=== PATIENT | male | born 1940 | race Caucasian/White ===

== ENCOUNTER 2023-07-09 06:06 | Day surgery (SDC) | payer OTHER, SELFPAY ==
[2023-07-09] VITALS (21 sets, daily range): BP systolic 143–275; BP diastolic 104–215; PULSE 61–83; RESP 16–18; TEMP 35.9–36.9; O2SAT 95–100; BMI 27.1
[2023-07-09] MEDS: LACTATED RINGERS 1000 ML 1,000 ML 100 ML IV ×3 (06:05→11:34)
--- OUTSIDE RECORDS SUMMARY | 2023-07-09 06:08 | XMS_ITS | Clinical Summary ---
Author Name Unknown Organization [facility] Address [place], [place] [address] Care Team Providers Care Terminal Press Operator Name Role Phone Marya Trejo MD Primary Care Prov ider Allergies Active Allergy Reactions Criticality Noted Date Comments Nifedipine 04/19/2009 Itching, dreams Medications Medication Sig Dispensed Refills Start Date End Date Status FLAXSEED OIL 0 01/02/2007 Active ASPIRIN 81 MG TAB, DELAYED RELEASE take 1 tablet (81 mg) by oral route once daily 0 01/02/2007 Active coenzyme q10 100 mg Cap Take 1 capsule by mouth once daily. 0 04/25/2010 Active medication order composer Beta prostate supplement 1 unit 0 07/01/2012 Active b complex vitamins (VITAMIN B COMPLEX) capsule Take 1 capsule by mouth once daily. 0 08/06/2013 Active magnesium oxide (MAG-OX 400) 400 mg tablet Take 1 tablet by mouth once daily. 0 11/26/2019 Active cholecalciferol (VITAMIN D-3) 2,000 unit capsule Take 1 capsule by mouth once daily. 0 11/26/2019 Active carvediloL (COREG) 6.25 mg tabletIndications: HTN (hypertension) Take 2 Tablets (12.5 mg) by mouth two times daily with meals. 120 Tablet 2 04/23/2023 4 Active Sennosides (Senna) 8.6 mg capIndications:Chr onic idiopathic constipation Take 1 Capsule (8.6 mg) by mouth once daily. 90 Capsule 5 05/01/2023 Active CPAPIndications:OS A (obstructive sleep apnea) CPAP machine for home use at pressure 10cmw, CPAP mask- mask of choice, fit to comfort one per 3 months 1 Each 11 07/04/2023 Active doxazosin (CARDURA) 1 mg tabletIndications: Essential hypertension Take 2 tablets by mouth at bedtime. Dose increase as of 02/22/2020 60 tablet 02/22/2020 4 Discontinue d(*Med complete/Re gimen complete/Le venancio of care change) cloNIDine HCL (CATAPRES) 0.2 mg tabletIndications: Hypertension, unspecified type TAKE 1 TABLET BY MOUTH TWICE DAILY AND 0.5 TABLETS IN THE EVENING. 270 Tablet 11/07/2020 4 Discontinue d(*Med complete/Re gimen complete/Le venancio of care change) Active Problems Problem Noted Date Diagnosed Date Stage 3a chronic kidney disease 06/28/2023 Resistant hypertension 06/28/2023 Non-recurrent bilateral ingu inal hernia without obstruction or gangrene 06/28/2023 Diverticula of colon 06/14/2016 Overview: Per colonoscopy 05/2016 Glucose intolerance (pre-diabetes) 07/01/2012 Family history of malignant neoplasm of prostate 07/05/2011 Melanosis coli 05/17/2010 Colon polyp 05/17/2010 Overview: Colonoscopy 04/2010 polyps repeat in 3 years Colonoscopy 05/2016 polyps repeat in 5 years Anxiety 09/02/2009 Glucose intolerance 01/21/2008 Unspecified Essential Hypertension 01/21/2008 Overview: Patient stopped hydrochlorothiazide because of joint pain Hytrin stopped because of irritability moodiness depression Nifedipine was okay at 5 mg but increase dose to 10 caused red rash blister hive-like Atenolol increased doses caused bradycardia Screening cholesterol level 01/21/2008 Encounters Date Type Department Care Team Description 07/08/2023 Telephone [facility] [address] [place], [place] [id number] Kelly Paniagua MD 07/08/2023 Telephone [facility] [address] [place], [place] [phone] Jorge Alberto Arreola MD 07/05/2023 Telephone [facility] [address] [place] [place], [place] [phone] Jorge Alberto Arreola MD Questions (CPAP MACHINE ) 07/04/2023 7:30 AM CDT Nurse/Clinic Staff Only [facility] [address] [facility] [place] [id number] Testing (HST Return/Download) 07/03/2023 1:45 PM CDT Nurse/Clinic Staff Only [facility] [address] [facility] [place] [address] Testing (HST Set-up) 07/03/2023 Procedure Only [facility] [address] [place] [address] Jorge Alberto Arreola MD Results (HST) 07/03/2023 Travel 06/28/2023 8:10 AM CDT Preop Visit [facility] [address] [place] [address] Genet Thakkar MD Pre-Op Exam (07/09/23 Bilateral hernia, at [facility] Dr. Paniagua) 06/28/2023 Travel 06/26/2023 1:00 PM CDT Office Visit [facility] [address] [place] [address] Kelly Paniagua MD Follow Up (Bilateral inguinal hernia surgery) 06/26/2023 Travel 06/21/2023 Orders Only [facility] [address] [facility] [place] [address] Nicole Campoverde MD 1 scan: (1-Ord) [facility]-EKG-06/18/23 06/20/2023 10:30 AM CDT Orders Only [facility] [address] [facility] [place] [facility] [place] [address] Lab, [facility] Lab 06/20/2023 Travel 06/19/2023 4:00 PM CDT Office Visit [facility] [address] [facility] [place] [address] Jorge Alberto Arreola MD Sleep Consult 06/19/2023 Telephone [facility] [address] [place] [address] Marya Trejo MD Lab 06/18/2023 9:00 AM CDT Office Visit [facility] [address] [facility] [place] [address] Nicole Campoverde MD Consult (Clearance for surgery on bilateral Inguinal hernia ) 06/18/2023 Telephone [facility] [address] [place] [address] Nicole aCmpoverde MD Results (EKG 06/24/2023) 06/18/2023 Telephone [facility] [address] [place] [address] Nicole Campoverde MD Cardiovascular Diagnostic Testing 06/18/2023 Travel 05/01/2023 3:00 PM MANAGING MEMBER Office Visit [facility] [address] [place] [address] Kelly Paniagua MD Consult (Bilateral inguinal hernia.//Referred by Dr. Trejo) 05/01/2023 Travel 04/25/2023 Telephone [facility] [address] [facility] [place] [address] Marya Trejo MD Follow Up 04/24/2023 9:10 AM MANAGING MEMBER Nurse/Clinic Staff Only [facility] [address] [place] [address] Blood Pressure 04/23/2023 2:05 PM MANAGING MEMBER Office Visit [facility] [address] [place] [address] Marya Trejo MD Lump (Lumps in the lower abdominal area. Has had them approximately 6 week. Some discomfort which showed up prior to the lumps ) 04/23/2023 Telephone [facility] [address] [facility] [place] [address] Marya Trejo MD Appointment 04/23/2023 Travel 04/15/2023 Telephone [facility] [address] [place] [address] Marya Trejo MD Appointment Request (POSSIBLE HERNIA) from Last 3 Months Immunizations Name Administration Dates Next Due Pneumococcal Poly,23-Valent (Pneumovax) 04/19/19 10 Pneumococcal conj 13-Valent (Prevnar 13) 018 Td (Age >=7 Years) 10/07/2002 Tdap 07/05/2011 Family History Medical History Relation Name Comments Cancer-prostate Father age 100 Other Mother of heart f ailure/motherside of family glaucoma-macular degeneration Genetic Other HTN-brother, mo ther, and sisters Relation Name Status Comments Father Mother Other Social History Tobacco Use Types Packs/Day Years Used Date Smoking Tobacco: Never Smokeless Tobacco: Never Tobacco Cessation:Counseling Given: Not Answered Comments:never Alcohol Use Standard Drinks/Week Comments Not Currently 0.8 (1 standard drink = 0.6 oz p ure alcohol) PHQ-2 Answer Date Recorded PHQ-2 TOTAL SCORE 0 02/22/2020 Social Connections Answer Date Recorded Frequency of Communication with Friends and Fami ly 0 06/28/2023 Financial Resource Strain Answer Date R ecorded Difficulty of Paying Living Expenses 3 06/28/2023 Difficulty of Paying Living Expenses Not on file 06/28/2023 Food Insecurity Answer Date Recorded Worried About Running Out of Food in the Last Ye ar 1 06/28/2023 Transportation Needs Answer Date Record ed Lack of Transportation (Medical) 1 06/28/2023 Housing Stability Answer Date Recorded Unable to Pay for Housing in the Last Year 1 06/28/2023 Sex and Gender Information Value Date Recorded Sex Assigned at Not on file Gender Identity Not on file Sexual Orientation Not on file Obstetrics History Last Filed Vital Signs Vital Sign Reading Time Taken Comments Blood Pressure 204/114 06/28/2023 9:03 AM CDT Pulse 63 06/28/2023 8:09 AM CDT Temperature 36.6 ??C (97.8 ??F) 06/03/2018 10:35 AM C DT Respiratory Rate 16 02/06/2019 2:50 PM MANAGING MEMBER Oxygen Saturation 100% 06/28/2023 8:09 AM CDT Inhaled Oxygen Concentration - - Weight 83.5 kg (184 lb 2 oz) 06/28/2023 8:09 AM CDT Height 174 cm (5' 8.5) 06/19/2023 4:03 PM CDT Body Mass Index 27.59 06/19/2023 4:03 PM CDT Plan of Treatment Upcoming Encounters Date Type Department Care Team (Late st Contact Info) Description 07/09/2023 8:00 AM CDT Office Visit [facility] [address] [place] [address] Kelly Paniagua MD [address] [place] [address] 10/10/2023 10:00 AM CDT Office Visit [facility] [address] [place] [address] Jorge Alberto Arreola MD [address] [place] [address] Health Maintenance Due Date Last Done Comments Zoster (shingles) series for age 50+ (1 of 2) 1992 Medicare Wellness for age 65+ 11/26/2019, 07/16/2017, 01/27/2016, Additional history exists Depression screening for age 12+ 02/22/2021 02/23/2020, 02/22/2020, 11/25/2018, Additional history exists Tetanus booster 07/04/2021 07/05/2011, 10/07/2002 COVID-19 vaccine series ( season) 2022 Influenza for age 65+ 10/27/2023 BMI (ht and wt on same day) for age 18+ 06/18/2024 06/19/2023, 05/01/2023, 04/23/2023, Additional history exists Tdap Completed 07/05/2011 Pneumococcal series for age 65+ Completed 8, 04/19/2009 Procedures Procedure Name Priority Date/Time Associated Diagnosis Comments HOME SLEEP TEST TYPE 3 PORTABLE Routine 07/03/2023 11:59 PM CDT CANDELARIO (obstructive sleep apnea) EKG 12 LEAD Routine 06/21/2023 3:23 PM CDT Unspecified Essential Hypertension BASIC METABOLIC PANEL Routine 06/20/2023 10:23 AM CDT Renal insufficiency BASIC METABOLIC PANEL Routine 04/23/2023 3:59 PM MANAGING MEMBER HTN (hypertension) from Last 3 Months Results * HOME SLEEP TEST TYPE 3 PORTABLE (07/03/2023 11:59 PM CDT) Narrative Jorge Alberto Arreola MD - 07/03/2023 11:59 PM CDT Jorge Alberto Arreola MD ? 07/04/2023 ??5:26 PM Home Sleep Test Name: ??Koffi Winters Location: ??[facility] Study notes: This is a single night home sleep apnea test. The study is performed in the context of a clinical suspicion for sleep apnea. Koffi Winters ( 1940) is studied using a T3 Device using nasal pressure transducer, thoracoabdominal respiratory impedance plethysmography belts, pulse oximetry, snore microphone and actigraphy for body position. ??The study is scored by a RPSGT and interpreted by a Diplomate of the [place] [employer]. ??An [id number] review of the data has been performed by the interpreting physician. Scored following the most current version of the AASM Manual for the Scoring of Sleep and Associated Events. ?? Respiratory Event Index (DOREEN) ??Oxygen Desaturation Index (CANDIDA) REI4% ??28.3 ??ODI4%: ??26.9 Supine DOREEN: 39.1 ??ODI3%: ??26.9 Lateral DOREEN: 12.7 ??Kishan Saturation 68 % ?? Time Below 88% 66.3 ??minutes ?? Weight: Wt Readings from Last 1 Encounters: 06/28/23 83.5 kg (184 lb 2 oz) Other data: Recording Duration: 359.9 minutes Time in Bed: ??346.1 minutes Estimated sleep efficiency [%]: 96 % Oximeter Quality: 100.0 % Flow Quality: 91.1 % RIP Quality: 100.0 % Supine time: 201.2 minutes Average SpO2: 91.7 % Pulse Average: 55.5 bpm Additional Comments: None IMPRESSION: Obstructive Sleep Apnea (327.23, G47.33) Central Sleep Apnea - Lopez Yuan Respirations (786.04, R06.3) Nocturnal Hypoxia (327.26, G47.34) RECOMMENDATIONS: - This is severe sleep apnea with marked hypoxemia. ??This patient was found to have central apneas, severe events in a supine position. ??This can play a role in his blood pressure. - Hypoxia is noted. ??While this can be probe error, it may suggest underlying cardiopulmonary disease and clinical correlation is recommended. - Follow-up with a provider to discuss results is recommended. - Patients should be advised to avoid critical tasks, such as driving, whenever drowsy. - Patients should try to achieve at least 7-8 hours of sleep on a consistent basis. - The DOREEN is a surrogate for AHI. ??For reimbursement and/or prior authorization purposes, it would be appropriate to list the DOREEN as an AHI when the latter is accepted, but not the former. Jorge Alberto Arreola M.D. Diplomate, Board of Sleep Medicine Recording Information Recording Date: 07/03/2023 ??Analysis Start Time: 10:13 PM Recording Tags: ?? Analysis Stop Time: 4:00 AM Device Type: T3S ??Analysis Duration (TRT): 5h 46m ?? Est. Total Sleep Time: 5h 38m Position and Analysis Time Duration Percentage Supine (in TST): 201.2 m 59.4 % Non-Supine (in TST): 137.5 m 40.6 % Upright (in TRT): 7.3 m 2.1 % Movement (in TST): 13.2 m 3.9 % Invalid Data (Excluded): 0 m 0 % Respiratory Indices Index ?? Total ??Supine ??Non-supine Count Apneas + Hypopneas (AH): 28.3 /h 39.1 /h 12.7 /h 160 Apneas: 17.2 /h 23 /h 8.7 /h 97 Obstructive (OA): 6.6 /h 11 /h 0 /h 37 Mixed (MA): 2.3 /h 3.6 /h 0.4 /h 13 Central (CA): 8.3 /h 8.3 /h 8.3 /h 47 Hypopneas: ??11.2 /h 16.1 /h 3.9 /h 63 Respiration Rate (per m): 12.7 /m 12.6 /m 12.9 /m ?? Percentage of Sleep Duration Snore: 2.2 % 3.6 % 0.3 % 7.6 m Flow Limitation: 0 % 0 % 0 % 0 m Average Snore Volume 67 dB Percent of time greater than 80dB: Percent of 8.3 % Oxygen Saturation (SpO2) Total Supine ?Non-supine Oxygen Desaturation Index (CANDIDA): 26.9 /h ??37 /h 12.2 /h Average SpO2: 91.7 % ??91.2 % 92.5 % Minimum SpO2: 68 % ??68 % 79 % SpO2 Duration < 90% 23.8 % (80.6m) 35.4 % 6.8 % SpO2 Duration ? 88% 19.6 % (66.3m) 29.4 % 5.3 % Pulse in TST ?? Quality ?? Average: 55.5 bpm Oximeter: 100 % Maximum: 73 bpm Nasal Cannula: 91.1 % Minimum: 46 bpm Abdomen RIP: 100 % Duration < 40 bpm: 0 m Thorax RIP: 100 % Duration > 100 bpm: 0 m ? Jorge Alberto Arreola MD SLEEP CENTER * EKG 12 LEAD (06/21/2023 3:23 PM CDT) Nicole Campoverde MD EKG ORD * (ABNORMAL) BASIC METABOLIC PANEL (06/20/2023 10:23 AM CDT) Only the most recent of2 resultswithin the time period is included. SODIUM 141 136 - 145 mmol/L 06/20/2023 11:58 AM [facility] POTASSIUM 4.0 3.5 - 5.1 mmol/L 06/20/2023 11:58 AM [facility] CHLORIDE 106 98 - 107 mmol/L 06/20/2023 11:58 AM [facility] CO2,TOTAL 23 22 - 29 mmol/L 06/20/2023 11:58 AM [facility] ANION GAP 12 5 - 18 06/20/2023 11:58 AM [facility] GLUCOSE 103(H) 70 - 99 mg/dL 06/20/2023 11:58 AM [facility] CALCIUM 9.2 8.8 - 10.2 mg/dL 06/20/2023 11:58 AM [facility] BUN 24(H) 8 - 23 mg/dL 06/20/2023 11:58 AM [facility] CREATININE 1.41(H) 0.70 - 1.20 mg/dL 06/20/2023 11:58 AM [facility] BUN/CREAT RATIO 17 10 - 20 4 11:58 AM [facility] eGFR 50(L) >90 mL/min/1.7 3m2 06/20/2023 11:58 AM [facility] Comment:As of 2021, eG FR is calculated by the CKD-EPI creatinine equation without race adjustment. ??eGFR can be influenced by muscle mass, exercise, and diet. ??The reported eGFR is an estimation only and is only applicable if the renal function is stable. Blood BLOOD SPECIMEN / Unknown Venipuncture / Unknown 06/20/2023 10:23 AM CDT 06/20/2023 10:23 AM T Marya Trejo MD CHEMISTRY [facility] [address] [place] [address] from Last 3 Months Care Teams Terminal Press Operator Relationship Specialty Start Date End Date Marya Trejo MD [address] [place] [address] PCP - General Family Practice 05/19/12
--- NOTE | 2023-07-09 06:44 | SUR.PREOP ---
Pt has had a hard time with his new sleep apnea machine has tried to use it but may not fit well complains of nose stuffyness May need resp consult
[2023-07-09] MEDS: HYDRALAZINE HCL 20 MG/ML inj 10 MG IVP (06:57)
[2023-07-09] MEDS: SODIUM CHLORIDE 0.9 % (FLUSH) 10 ML SYRINGE IVF (07:10)
--- NOTE | 2023-07-09 07:12 | SUR.PREOP ---
Dr. Rodger elena to see pt noting elevated bp's will give some hydralazine pre-op
--- NOTE | 2023-07-09 07:38 | W.PM.H&PU ---
History & Physical Update History & Physical Update H&P Reviewed and patient assessed: The following changes are noted below H&P Updates: Patient recently diagnosed with sleep apnea. Has a CPAP machine, which he trialed last night. He did bring his CPAP machine with him today.
[2023-07-09] MEDS: CEFAZOLIN 2 GM INJ IVP (08:00)
[2023-07-09] MEDS: BUPIVACAINE 0.25% 30 ML INJECTION (08:10)
--- NOTE | 2023-07-09 08:18 | SUR.OPER ---
PATIENT QUESTIONS ANSWERED SATISFACTORILY PREOPERATIVELY. PATIENT BROUGHT TO OR #1 PER CART. Patient positioned supine on OR #1 bed. The perioperative team supported arms bilaterally on arm boards. Bilateral arms tucked in a neutral position for the procedure. Final approval of positioning by surgeon.
--- NOTE | 2023-07-09 09:06 | W.ANESCHARGE ---
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
--- NOTE | 2023-07-09 10:12 | SUR.OPER ---
PT. UPDATED BY PHONE CALL AT 10:01.
[2023-07-09] MEDS: LACTATED RINGERS 1000 ML 1,000 ML 75 ML IV ×2 (11:45→23:32)
--- NOTE | 2023-07-09 12:49 | W.ANESCHARGE ---
Anesthesia Charges Start Date/Time Anesthesia Start Date: 07/09/23 Anesthesia Start Time: 07:41 Stop Date/Time Anesthesia Stop Date: 07/09/23 Anesthesia Stop Time: 11:52 Summary Extremes of Age - Over 70 or under 1: MDA
--- NOTE | 2023-07-09 14:22 | P.GSOP_ITS ---
Operative Note Date of procedure: 07/09/23 Pre-op diagnosis: Bilateral inguinal hernias Post-op diagnosis: Same Type of Procedure: Laparoscopic bilateral inguinal hernia repair Indications: Patient is an 82-year-old male who presented to clinic with symptomatic bilateral hernias. Different treatment options were reviewed, please see consu ltation note for full discussion. Risks and benefits of operative intervention were discussed at length with the patient. Risks included but was not limited to: Bleeding, infection, risk of damage to surrounding structures, possible need for additional procedures, possible need to convert to an open operation and postoperative complications such as pneumonia, pulmonary emboli or IN. All questions and concerns were addressed with the patient agreeing to proceed. Procedure Description: After discussing the risks and benefits of the procedure, the patient signed informed consent.? The operative site was marked and the patient was brought to the operating room and placed on the operating table in supine position.? Care was taken to pad the patient's pressure points.?? The patient was then intubated by anesthesia.?? The operative site was then prepped and draped in the usual sterile fashion.? A time-out was then performed. A curvilinear incision was made below the umbilicus. Dissection was carried down to subcutaneous tissue until the anterior rectus fascia was encountered. This was incised off the midline. The rectus muscles were then retracted exposing the posterior fascia. A space maker port with a dissecting balloon was then introduced. The preperitoneal space was inflated under direct vision. The balloon was then removed and the preperitoneal space insufflated. A 10 mm 30 degree scope was then advanced and the area was surveyed for bleeding. No evidence of bleeding, however the epigastric vessels were dissected down away from the anterior abdominal wall on the left side. Dissection began on the left side. Brandon's ligament and the pubic bone was exposed medially. Following this dissection was carried out laterally. A small tear in the peritoneum was created. This did make dissection difficult as it decreased the operative field. The epigastric vessels were dissected towards the anterior abdominal wall. A small branch of venous bleeding was identified and a 5 mm clip applied A large indirect defect was noted. The sac was dissected free from the cord structures using a combination of sharp and blunt dissection. This was difficult secondary to adhesions from the sac to the inguinal canal. Once the sac was completely reduced, the cord structures were dissected circumfrentially and a piece of Parietex mesh for the appropriate side was placed into the abdomen. This was positioned around the cord structures. A Tacker was used to attach the mesh medially at Brandon's ligament. A single lateral tack was placed. Attention was turned to the opposite side where a large indirect defect was noted and repair was completed in the same fashion. Again, an area of bleeding was identified and 2 5 mm clips applied. Suction irrigation was used to gently irrigate the preperitoneal space. Hemostasis was excellent at the completion of the procedure. Once this was completed the sac was placed on top of the mesh and the preperitoneal space desufflated under direct vision. The ports were removed. The fascia from the infraumbilical port was closed with 0 Vicryl. The skin incisions were closed with absorbable subcuticular suture. Sterile dressings were then applied. The scrotum was examined to ensure that both testicles were down. Instrument sponge and needle counts were correct at the end of the case. Findings: Bilateral large indirect inguinal hernias. Anesthesia: GETA Surgeon: Kelly Paniagua MD Estimated blood loss (mL): 15 Condition: stable Disposition: PACU
--- NOTE | 2023-07-09 14:49 | PC.NURSE ---
End of Shift Note: Patient arrived from PACU around 12:30. Upon arrival he was complaining he felt like he needed to void but couldn't. He was assisted by 2 people ambulated to the bathroom and voided 150cc. He was unsteady with ambulating to the bathroom and appears to be drowsy from anesthesia. Complains of having a lot of pressure in his abdomen. Explained to him that they inflate his abdomen with gas during the procedure and that is what he maybe feeling. See intake and output and he has voided since he arrived. No complaints of nausea or pain. Have noted his blood pressure to be very high and it was pre-op. Have update Dr. Silverio regading his blood pressure and he will be seen by Dr. Beth. Will continue to monitor and await for orders. Offer to order him some clear liquids but he has declined this. His and daughter are at bedside. Will continue to monitor until next shift arrives.
--- NOTE | 2023-07-09 15:48 | RESP.RT ---
Pt's CPAP set up. Per it is a new thing. They are very frustrated with it, have talked to Dr. Arreola, who told them (per ) that the pressure cannot be lowered. He has a new mask he just recieved to try it. Note that he has a significant mustache which may cause a problem with mask seal. [facility] to work with pt on using unit, and mask fit.
[2023-07-09] MEDS: CHLORTHALIDONE 25 MG TABLET PO (16:41)
--- NOTE | 2023-07-09 19:26 | PM.IMCN1 ---
Date of Consult Patient: Yanna Patient Consult date: 07/09/23 Requesting Physician: General Surgery Primary Care Provider: Marya Trejo MD Consult Narrative Narrative: Koffi Winters is a 82 year old male admitted to the hospital for laparoscopic bilateral inguinal hernia repair is seen in consultation for management of severe hypertension. Patient has had lifelong severe uncontrolled hypertension. He was refused admission to the [employer] as a young man because of hypertension. He monitors his blood pressure at home and finds better blood pressures at home than are noted in the doctor's office. Typically he reports his systolic brought pressures are between 160 and 200 at home. He has had reports of intolerance to virtually all antihypertensives. Patient reports that he has been feeling fine recently he has not had any chest pain or dyspnea. He felt fine when he came to the hospital today for his operation. The surgery was uncomplicated. During the operation he had marked elevation of blood pressures with systolic blood pressures consistently between 200 and 260 and diastolic blood pressures consistently between 110 and 135. He received intravenous hydralazine before the operation. He takes carvedilol 6.25 mg b.i.d. chronically. Not on any other blood pressure medicines at this time. Previous evaluation has shown no obvious end-organ damage from his hypertension. There is no known history of stroke, advance kidney disease, hypertensive cardiomyopathy or myocardial infarction. 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 ICM postoperatively when he reports feeling fine except for some mild abdominal discomfort from his surgery. No nausea or chills or dyspnea or chest pain [facility] Medical History (Updated 07/09/23 @ 19:41 by Amilcar Beth MD) Severe uncontrolled hypertension ?I10 - Essential (primary) hypertension (ICD-10) Non-recurrent bilateral inguinal hernia without obstruction or gangrene ?K40.20 - Bilateral inguinal hernia, without obstruction or gangrene, not specified as recurrent (ICD-10) Diverticula of colon ?K57.30 - Diverticulosis of large intestine without perforation or abscess without bleeding (ICD-10) Colon polyp ?K63.5 - Polyp of colon (ICD-10) Melanosis coli ?K63.89 - Other specified diseases of intestine (ICD-10) Stage 3a chronic kidney disease (CKD) ?N18.31 - Chronic kidney disease, stage 3a (ICD-10) Anxiety ?F41.9 - Anxiety disorder, unspecified (ICD-10) HTN (hypertension) ?I10 - Essential (primary) hypertension (ICD-10) Glucose intolerance ?E74.39 - Other disorders of intestinal carbohydrate absorption (ICD-10) Surgical History (Updated 07/09/23 @ 19:42 by Amilcar Beth MD) Status post bilateral inguinal hernia repair ?Z98.890 - Other specified postprocedural states (ICD-10) ?Z87.19 - Personal history of other diseases of the digestive system (ICD-10) Family History (Updated 07/09/23 @ 19:37 by Amilcar Beth MD) Father Prostate cancer Other High blood pressure Social History (Updated 07/09/23 @ 19:38 by Amilcar Beth MD) Narrative: He is a retired [employer] and lives with his . He rarely drinks alcohol. He does not smoke. Code status is full What is your current living situation?: I presently have a place to live Problems where you live: no known problems In the past 12 months, utilities in danger of being shut off: no In past 12 months, lack of transportation kept you from medical appts, meetings, work, or getting things needed for daily living: no In the past 12 mos, have been you worried that your food would run out before you had money to buy more?: never true In the past 12 mos, the food you bought just didn't last and you didn't have money to buy more?: never true Smoking Status: Never smoker Do you use any of these nicotine containing products: None Second hand tobacco smoke exposure: No How often do you have a drink containing alcohol: monthly or less Alcohol type: beer How many standard drinks containing alcohol do you have on a typical day: 1 or 2 How often do you have six or more drinks on one occasion: Never AUDIT-C Alcohol total score: 1 Non-prescribed substance use: denies use How often does anyone, including family, friends and others, physically hurt you: never How often does anyone, including family, friends and others, insult or talk down to you: never How often does anyone, including family, friends and others, threaten you with harm: never How often does anyone, including family, friends and others, scream or curse at you: never service: No Meds Home Medications and Allergies Home Medications Medication Instructions Recorded Confirmed Type aspirin 81 mg tablet,delayed 81 mg PO DAILY 07/05/23 07/09/23 History release carvedilol 6.25 mg tablet (Coreg) 12.5 mg PO BID 07/05/23 07/09/23 History cholecalciferol (vitamin D3) 50 50 mcg PO DAILY 07/05/23 07/09/23 History mcg (2,000 unit) capsule coenzyme Q10 100 mg capsule (Co 100 mg PO DAILY 07/05/23 07/09/23 History Q-10) magnesium oxide 400 mg PO DAILY 07/05/23 07/09/23 History sennosides 8.6 mg capsule (senna) 8.6 mg PO DAILY 07/05/23 07/05/23 History vitamin B complex (B-Complex 1 tab PO DAILY 07/05/23 07/09/23 History tablet) Allergies Allergy/AdvReac Type Severity Reaction Status Date / Time nifedipine Allergy Unknown Verified 07/09/23 06:21 Exam Narrative: Exam Narrative: He is alert and appears in no distress. Speech is normal. Oropharynx normal. Eyes are normal. Neck is supple without mass or adenopathy. Respirations are clear to auscultation. Cardiovascular: S1, S2, regular rate and rhythm. Abdomen is soft without tenderness or mass. Laparoscopic incision sites are clean and dry without erythema or drainage. Extremities without edema. Intact peripheral pulses. Const: Vital Signs, click to edit/add: Vital Signs - 24 hr 07/09/23 06:51 07/09/23 07:19 07/09/23 11:50 Temperature 98.4 F 97.0 F L Pulse Rate 61 74 Pulse Rate [Right Pulse Oximeter] Respiratory Rate 18 18 Blood Pressure 251/138 H 233/116 H 215/116 H Pulse Oximetry 96 98 Oxygen Delivery Me thod Room Air Room Air 07/09/23 11:55 07/09/23 12:00 07/09/23 12:05 Temperature 97.0 F L Pulse Rate 66 67 69 Pulse Rate [Right Pulse Oximeter] Respiratory Rate 16 18 17 Blood Pressure 197/104 H 220/133 H 238/120 H Pulse Oximetry 98 98 98 Oxygen Delivery Me thod Room Air Room Air Room Air 07/09/23 12:10 07/09/23 12:15 07/09/23 12:20 Temperature 96.7 F L Pulse Rate 67 67 67 Pulse Rate [Right Pulse Oximeter] Respiratory Rate 18 18 18 Blood Pressure 232/119 H 228/124 H 231/127 H Pulse Oximetry 98 98 98 Oxygen Delivery Me thod Room Air Room Air Room Air 07/09/23 12:36 07/09/23 12:43 07/09/23 12:43 Temperature 96.6 F L 96.8 F L Pulse Rate 77 71 70 Pulse Rate [Right Pulse Oximeter] Respiratory Rate 18 18 Blood Pressure 244/125 H 250/123 H Pulse Oximetry 96 99 Oxygen Delivery Me thod Room Air Room Air 07/09/23 13:00 07/09/23 13:15 07/09/23 13:30 Temperature 97.0 F L 97.0 F L 96.7 F L Pulse Rate 69 70 76 Pulse Rate [Right Pulse Oximeter] Respiratory Rate 18 16 16 Blood Pressure 247/131 H 258/123 H 236/107 H Pulse Oximetry 99 99 100 Oxygen Delivery Nc thod Room Air Room Air Room Air 07/09/23 14:30 07/09/23 15:00 07/09/23 15:00 Temperature 97.6 F Pulse Rate 76 78 Pulse Rate [Right Pulse Oximeter] 80 Respiratory Rate 18 18 18 Blood Pressure 251/139 H 275/146 H Pulse Oximetry 97 96 Oxygen Delivery Me thod Room Air Room Air 07/09/23 16:00 07/09/23 17:00 Temperature 98 F Pulse Rate 80 83 Pulse Rate [Right Pulse Oximeter] Respiratory Rate 18 18 Blood Pressure 240/215 H 143/141 H Pulse Oximetry 97 97 Oxygen Delivery Me od Room Air Room Air Assessment and Plan Assessment and plan (1) Severe uncontrolled hypertension: Problem comment: Patient's uncontrolled blood pressure is due to patient being intolerant of most all blood pressure medications. I have urged him to try medications over and over again to see if he can find something he can tolerate despite his previous history of futility with blood pressure medicines. He agrees to a trial of adding chlorthalidone to his current medication regimen with close outpatient follow-up. Status: Acute (2) Status post bilateral inguinal hernia repair: Problem comment: Dr. Paniagua 07/09/2023 no complications Status: Acute Plan Initiate chlorthalidone. Outpatient followup next week in clinic to check blood pressure and basic metabolic panel. Will also add in potassium. Consider trial of an ARB at follow-up next week Total Time Spent Total Time Spent: Total time spent today is 45 minutes, 30 minutes in coordination of care discussing with patient and risks and benefits of blood pressure treatment
[2023-07-09] MEDS: carvediloL 6.25 MG TABLET 12.5 MG PO (21:31)
[2023-07-10 01:21] VITALS: PULSE 71
[2023-07-10 02:15] VITALS: BP 185/102; PULSE 65; RESP 16; TEMP 36.8; O2SAT 95
--- NOTE | 2023-07-10 06:54 | PC.NURSE ---
Pt alert and oriented x3. Afebrile. Pt reports 0/10 pain while lying in bed. Pt has 3 lap sites that are CDI. Pt got up to try and use the bathroom but only urinated 5 mls. Bladder scan was performed showing 461 as the highest. Pt was straight catheterized with out put of 450ml. Pt is up SBA, tolerating regular diet, and slept intermittently throughout night. ?
[2023-07-10 07:00] VITALS: BP 237/120; PULSE 69; RESP 16; TEMP 37.1; O2SAT 97
[2023-07-10 07:21] LABS: Chloride* 108 mmol/L (96-114); Potassium* 3.9 mmol/L (3.6-5.1); Sodium* 141 mmol/L (135-149)
[2023-07-10 07:24] LABS: Anion Gap 8 mEq/L (7-15); Blood Urea Nitrogen* 25 mg/dL (7-30); Carbon Dioxide* 25 mmol/L (20-32); Creatinine* 1.3 mg/dL (0.5-1.5); Est. Creatinine Clearance* 45.32; Estimated Glomerular Filt Rate 56 ml/min
[2023-07-10 07:25] LABS: Glucose* 114 mg/dL (60-115)
[2023-07-10] MEDS: CHLORTHALIDONE 25 MG TABLET PO (09:29)
[2023-07-10] MEDS: SENNOSIDES 1 TAB TABLET PO (09:29)
[2023-07-10] MEDS: COENZYME Q10 100 MG CAPSULE PO (09:29)
[2023-07-10] MEDS: carvediloL 6.25 MG TABLET 12.5 MG PO (09:29)
--- NOTE | 2023-07-10 09:56 | PM.EN ---
Chart Event Note Date Seen: 07/10/23 Chart Event Note: Chart review. Stopped by patient's room, attempting to see him a couple of times this morning, not available in the room either time. Reviewed my colleague's consult note. 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 Longstanding history of poorly managed blood pressure and sensitivities to antihypertensives. Has been encouraged to try other medications, initiating chlorthalidone this course. Recommends close outpatient follow up with PCP, trial of ARB. Other than remaining hypertensive, has been vitally stable. BMP unremarkable.
--- NOTE | 2023-07-10 12:36 | PC.NURSE ---
shift note: pt up in [place] ambulating. Pt denies pain. BS active x4. pt tolerating regular diet. IV dc'd intact. Reviewed dc instructions and copies sent with pt. Belongings reviewed and sent with pt.
== END 2023-07-10 12:45 | disposition home or self-care (01) ==
LOC: OR 06:07 → MEDSURG 06:35
PROVIDERS: Family Medicine; PCP Family Medicine; Visit Provider Surgery
PROC: (CPT 49650; principal; 2023-07-09 07:30)
DX: K40.20 Bilateral inguinal hernia, without obstruction or gangrene, not specified as recurrent (principal); G89.18 Other acute postprocedural pain; I12.9 Hypertensive chronic kidney disease with stage 1 through stage 4 chronic kidney disease, or unspecified chronic kidney disease; N18.31 Chronic kidney disease, stage 3a; E74.39 Other disorders of intestinal carbohydrate absorption; R73.03 Prediabetes
CPT/HCPCS: 49650; 00840; 00860; 36415; 51702; 51798; 80048; 99100; A9270; C1781; J0330; J0360; J0665; J0690; J1100; J2250; J2371; J2405; J2704; J3010; J3490; J7120

== ENCOUNTER 2024-11-17 06:14 | Day surgery (SDC) | payer OTHER, SELFPAY ==
[2024-11-17] VITALS (8 sets, daily range): BP systolic 164–236; BP diastolic 86–121; PULSE 69–79; RESP 14–16; TEMP 36.6–37.1; O2SAT 92–97; BMI 25.2
[2024-11-17] MEDS: LACTATED RINGERS 1000 ML 1,000 ML 100 ML IV (06:38)
[2024-11-17] MEDS: SODIUM CHLORIDE 0.9 % (FLUSH) 10 ML SYRINGE IVF (06:38)
[2024-11-17] MEDS: LIDOCAINE 1%-EPI 1:100,000 20 ML INFILTRATI (07:49)
[2024-11-17] MEDS: BUPIVACAINE 0.25% 30 ML INJECTION (07:49)
--- NOTE | 2024-11-17 10:19 | W.PM.H&PU ---
History & Physical Update History & Physical Update H&P Reviewed and patient assessed: No changes noted
--- NOTE | 2024-11-17 10:20 | PM.GSPRC ---
Operative Note Date of procedure: 11/17/24 Pre-op diagnosis: 1. S/p laparoscopic bilateral inguinal hernia repair with mesh. 2. Recurrent right inguinal hernia. Post-op diagnosis: 1. s/p laparoscopic bilateral inguinal hernia repair with mesh. 2. 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 Type of Procedure: 1. Open right inguinal hernia repair with mesh. Indications: 84-year-old male underwent laparoscopic bilateral inguinal hernia repair with mesh in June of 2023. Last fall patient noticed that after multiple episodes of sneezing several times a day for a few weeks, there was a bulge on the right side. Since then the patient noticed that the bulge has been getting bigger in size. He was wearing a hernia belt but it stopped helping the bulge and the bulge was being more prominent. Patient's hernia was reducible when he lied flat down. On clinical exam with the patient standing up there was a moderately sized right inguinal hernia that was reducible. Given patient's clinical history and the enlarging nature of his right inguinal hernia, an open right inguinal hernia repair was recommended. The procedure was discussed in detail. The risks associated procedure including infection, bleeding, injury to intra-abdominal organs, injury to preperitoneal organs, and hernia recurrence were all discussed with the patient, he agreed to proceed. Procedure Description: After discussing the risks and benefits of the procedure, the patient signed informed consent.? The operative site was marked and the patient was brought to the operating room and placed on the operating table in supine position.? Care was taken to pad the patient's pressure points.?? The patient was then sedated by anesthesia.?? The operative site was then prepped and draped in the usual sterile fashion.? A time-out was then performed. Surgical site was prepped and draped in sterile fashion. Site of the incision was marked with a marking pen and local anesthetic was injected on the right side. An oblique incision was made just above and medial to the right inguinal ligament. Subcutaneous tissue was dissected to external obliques. Superficial subcutaneous vascular branches were clamped, divided and tied with 3-0 Vicryl ties. Small incision was made through the external oblique aponeurosis with scalpel. I then used Metzenbaum scissors to dissect under external obliques and extend my incision. Mosquito clamps were placed on the edges of external oblique exposing the inguinal floor. The right Ilioinguinal nerve was identified and was going through the plain of dissection. The nerve was divided proximally and distally and a 3 cm segment of it was excised. This was not sent to pathology. [place] drain was placed around the spermatic cord and hernia sac. It was difficult to define the plane between the hernia sac and the spermatic cord but the spermatic cord was thickened on palpation. Cremasteric fibers were peeled off of the spermatic cord and divided with cautery. This dissection was carried towards the right testicle. The superior portion of the right testicle and epididymis were seen. There was an epididymal cyst present. Previously placed preperitoneal mesh was palpable through the internal ring. Preperitoneal fat was noted to be incarcerated through the internal ring. This was dissected of the hernia sac and was clamped with right angle clamps and tied with Vicryl ties. This preperitoneal fat was excised with cautery and not sent to pathology. After tedious dissection was finally able to identify a small direct hernia sac. An intra-abdominal structure was palpable in the sac that was thought to be an appendix. The peritoneum of the hernia sac was grasped and incised with Metzenbaum scissors. Appendix was indeed identified in the hernia sac. This was attached to the inside of the hernia sac. Appendix was mobilized of the hernia sac with cautery and Metzenbaum scissors. The cecum was also mobilized off the inside wall of the hernia sac with Metzenbaum scissors with care taken not to injure the cecum. The appendix did not appear inflamed. When the appendix was free, it was pushed intra-abdominally. A stitch using 2-0 Vicryl was placed near the base of the hernia sac through the sac and the hernia sac tied off. Hernia sac was then excised and not sent to pathology. The cut edge of the hernia sac was then oversewn with a locking Vicryl suture. This was then pushed into preperitoneal space through the internal ring. Surgical field was examined for bleeding and hemostasis was achieved with cautery and Vicryl ties. A Bard mesh onlay was also used for hernia repair. The mesh onlay was sutured in place with interrupted 0-0 Neurolon sutures to the conjoint tendon medially and shelving edge laterally, pubic tubercle inferiorly. Simple interrupted sutures were placed using 0-0 Neurolon at the base of internal inguinal ring making it only large enough to fit a tip of one finger through. Spermatic cord was placed back into scrotum. [place] drain was removed. External oblique aponeurosis was closed with a running 3-0 Vicryl. Additional local anesthetic was injected into subcutaneous tissues. Kishore's fascia and subcutaneous tissue was re-approximated with interrupted Vicryl stitches. Skin incision was closed with 4-0 Monocryl subcuticular stitch. Steri strips and sterile dressing were applied over incision. All counts were correct at the end of the case. Patient tolerated this procedure well and was transferred to PACU in stable condition. Findings: Indirect small hernia containing appendix. The appendix was reduced and hernia was repaired with Bard onlay mesh. Anesthesia: MAC and local Surgeon: Loulou Villalobos MD Estimated blood loss (mL): 15 Condition: stable Disposition: same day
--- NOTE | 2024-11-17 10:25 | P.ANES_ITS ---
Anesthesia Charges Start Date/Time Anesthesia Start Date: 11/17/24 Anesthesia Start Time: 07:24 Stop Date/Time Anesthesia Stop Date: 11/17/24 Anesthesia Stop Time: 10:18 Summary Extremes of Age - Over 70 or under 1: LOG HANDLER Coding CPT Codes CPT Codes: ANESTH REPAIR OF HERNIA - 62137 ([id number]) P3 - PATIENT W/SEVERE SYS DISEASE, QK - WATER TREATMENT SPECIALIST 2-4 CNCRNT ANES PROC, QX - LOG HANDLER SVC W/ MD MED DIRECTION Additional Codes: Summary - Extremes of Age - Over 70 or under 1: LOG HANDLER ([id number])
--- NOTE | 2024-11-17 10:25 | W.ANESCHARGE ---
Anesthesia Charges Start Date/Time Anesthesia Start Date: 11/17/24 Anesthesia Start Time: 07:24 Stop Date/Time Anesthesia Stop Date: 11/17/24 Anesthesia Stop Time: 10:18 Summary Extremes of Age - Over 70 or under 1: DIVERSITY MANAGER Coding CPT Codes CPT Codes: ANESTH REPAIR OF HERNIA - 36422 ([id number]) P3 - PATIENT W/SEVERE SYS DISEASE, QK - MATERNITY FLOOR SUPERVISOR 2-4 CNCRNT ANES PROC, QX - DIVERSITY MANAGER SVC W/ MD MED DIRECTION Additional Codes: Summary - Extremes of Age - Over 70 or under 1: DIVERSITY MANAGER ([id number])
--- NOTE | 2024-11-17 10:44 | P.ANES_ITS ---
Anesthesia Charges Start Date/Time Anesthesia Start Date: 11/17/24 Anesthesia Start Time: 07:24 Stop Date/Time Anesthesia Stop Date: 11/17/24 Anesthesia Stop Time: 10:18 Summary Extremes of Age - Over 70 or under 1: MDA Coding CPT Codes CPT Codes: ANESTH REPAIR OF HERNIA - 47044 ([id number]) QK - MARINE SERVICE MANAGER 2-4 CNCRNT ANES PROC, QX - CHILD CARE WORKER SVC W/ MD MED DIRECTION, P3 - PATIENT W/SEVERE SYS DISEASE Additional Codes: Summary - Extremes of Age - Over 70 or under 1: MDA ([id number])
--- NOTE | 2024-11-17 10:44 | W.ANESCHARGE ---
Anesthesia Charges Start Date/Time Anesthesia Start Date: 11/17/24 Anesthesia Start Time: 07:24 Stop Date/Time Anesthesia Stop Date: 11/17/24 Anesthesia Stop Time: 10:18 Summary Extremes of Age - Over 70 or under 1: MDA Coding CPT Codes CPT Codes: ANESTH REPAIR OF HERNIA - 20197 ([id number]) QK - GLASS PRODUCTION MACHINE OPERATOR 2-4 CNCRNT ANES PROC, QX - PRE K SPECIAL EDUCATION TEACHER SVC W/ MD MED DIRECTION, P3 - PATIENT W/SEVERE SYS DISEASE Additional Codes: Summary - Extremes of Age - Over 70 or under 1: MDA ([id number])
[2024-11-17] MEDS: HYDROCODONE-ACETAMIN 5-325 MG 1 TAB PO (11:17)
--- NOTE | 2024-11-17 12:29 | SUR.PHASEII ---
Pt got nauseated and vomited x 2 after pt up and dressed. Pt did drink water, a little Sprite and had crackers prior to vomiting. Pt also had Vicodin. Aromatherapy Q-Easy patch applied to pt's shirt. Pt's legs and arms feeling weak when he is up. Pt resting longer before d/c. Pt's daughter and at bedside. Will give emesis bag at d/c. Encouraged pt to start slowly again with eating and drinking.
--- NOTE | 2024-11-17 12:52 | SUR.PHASEII ---
Pt feeling better (nausea improved) and legs stronger. Pt able to easily pivot to w/c and feels well standing up and taking a few steps. D/c to home with daughter and . Reassured pt to call surgery clinic with questions and we will do callback tomorrow to check on him.
--- NOTE | 2024-11-17 12:53 | SUR.PHASEII ---
Pt's blood pressures very high in recovery as anesthsia wore off. NELLIE Andino aware and OK to D/c to home with high b/p as this is his baseline and his primary MD is aware. Pt does check his b/p at home as well.
== END 2024-11-17 12:56 | disposition home or self-care (01) ==
PROVIDERS: PCP Family Medicine; Visit Provider Surgery
PROC: (CPT 49521; principal; 2024-11-17 07:30)
DX: K40.31 Unilateral inguinal hernia, with obstruction, without gangrene, recurrent (principal)
CPT/HCPCS: 49521; 00830; 99100; A9270; C1781; J0665; J0690; J2704; J3010; J3490; J7120

== ENCOUNTER 2025-02-02 12:00 | Inpatient (IN) | payer OTHER, SELFPAY ==
[2025-02-02] VITALS (30 sets, daily range): BP systolic 139–265; BP diastolic 79–140; PULSE 59–81; RESP 16–20; TEMP 36.7–37.2; O2SAT 93–98; BMI 25.7
--- NOTE | 2025-02-02 12:24 | ED.GENADULT ---
HPI - General Adult General Date Seen: 02/02/25 Chief complaint: Neuro Symptoms/Altered Deficit Stated complaint: Stroke like symptoms saturday Time Seen by Provider: 02/02/25 12:22 History of Present Illness HPI narrative: 84-year-old gentleman with history of hypertension, bilateral inguinal hernia repairs, chronic kidney disease, anxiety, who presents to the ER today with his family ( and daughter) for evaluation of TIA symptoms. He has a history of poorly controlled hypertension most of his adult life, dating back to around when he was age 21 or 22 in the [employer]. He has had extensive workup, he says, through Cardiology at [facility] for the high blood pressure it sounds like there was no particular explanation for why he has such persistent, marked hypertension. He has been intolerant a multiple blood pressure medications over the years. He is currently on carvedilol and was recently started on amlodipine by his PCP, Dr. Trejo, through the [facility] clinic. Apparently he has had extensive evaluation through Cardiology and they have never been able to find and effective antihypertensive that does not cause undue side effects for the patient. He has been living with chronic markedly elevated hypertension for years. He does not have any other known cardiac risk factors. Nonsmoker. No history of high cholesterol (until recently when he apparently had high cholesterol on recent blood test). No history of diabetes. No known history of coronary disease or stroke. He did have out coronary CT scan a few years ago that was normal. He recently had an echocardiogram that apparently showed mild aortic regurg but no significant valvular disease. He has no history of AFib. On Saturday afternoon he had symptoms that lasted less than half an hour or so. Noticed numbness affecting his right cheek, in particular his right lower lip, trouble speaking and is finding his words and also trouble with when he tried to drink. He noticed water leaking up the right corner of his mouth. Also mild headache. No definite weakness or numbness affecting his arms or legs. No visual symptoms. Symptoms resolved on their own after about half an hour. His daughter, who is a nurse, thought that the symptoms might have been a side effect of the new amlodipine. He has been taking it on Saturday, and yesterday on Saturday without any recurrent symptoms. Today he and his family called her doctor's office and were told to come to the ER with suspicion that he probably had a TIA on Saturday. Per records from [facility] he had labs on 01/26. Normal electrolytes. BUN 16, creatinine 1.47. Total cholesterol was 214, triglycerides 109, HDL 60 , LDL 132. His doctor told him that for the 1st time his cholesterol was measuring a little high, but he has not yet been started on the medication for it. They were planning to address it at his next visit. Related Data Home Medications ?Medication ?Instructions ?Recorded ?Confirmed aspirin 81 mg tablet,delayed 81 mg PO DAILY 07/05/23 11/17/24 release cholecalciferol (vitamin D3) 50 50 mcg PO DAILY 07/05/23 11/17/24 mcg (2,000 unit) capsule coenzyme Q10 100 mg capsule (Co 100 mg PO DAILY 07/05/23 11/17/24 Q-10) magnesium oxide 400 mg PO DAILY 07/05/23 11/17/24 tamsulosin 0.4 mg capsule (Flomax) 0.4 mg PO DAILY 11/13/24 11/17/24 Previous Rx's ?Medication ?Instructions ?Recorded potassium chloride 10 mEq 10 meq PO DAILY #30 tabs 07/09/23 tablet,extended release hydrocodone 5 mg-acetaminophen 325 1 tab PO Q6H PRN pain #25 tabs 11/17/24 mg tablet Allergies Allergy/AdvReac Type Severity Reaction Status Date / Time nifedipine Allergy Unknown Verified 02/02/25 14:27 [facility] Medical History Severe uncontrolled hypertension ?I10 - Essential (primary) hypertension (ICD-10) Non-recurrent bilateral inguinal hernia without obstruction or gangrene ?K40.20 - Bilateral inguinal hernia, without obstruction or gangrene, not specified as recurrent (ICD-10) Diverticula of colon ?K57.30 - Diverticulosis of large intestine without perforation or abscess without bleeding (ICD-10) Colon polyp ?K63.5 - Polyp of colon (ICD-10) Melanosis coli ?K63.89 - Other specified diseases of intestine (ICD-10) Stage 3a chronic kidney disease (CKD) ?N18.31 - Chronic kidney disease, stage 3a (ICD-10) Anxiety ?F41.9 - Anxiety disorder, unspecified (ICD-10) HTN (hypertension) ?I10 - Essential (primary) hypertension (ICD-10) Glucose intolerance ?E74.39 - Other disorders of intestinal carbohydrate absorption (ICD-10) Surgical History Status post bilateral inguinal hernia repair ?Z98.890 - Other specified postprocedural states (ICD-10) ?Z87.19 - Personal history of other diseases of the digestive system (ICD-10) Family History Father Prostate cancer Other High blood pressure Social History Narrative: He is a retired [employer] and lives with his . He rarely drinks alcohol. He does not smoke. Code status is full What is your current living situation?: I presently have a place to live Problems where you live: no known problems In the past 12 months, utilities in danger of being shut off: no In past 12 months, lack of transportation kept you from medical appts, meetings, work, or getting things needed for daily living: no In the past 12 mos, have been you worried that your food would run out before you had money to buy more?: never true In the past 12 mos, the food you bought just didn't last and you didn't have money to buy more?: never true Smoking Status: Never smoker Do you use any of these nicotine containing products: None Second hand tobacco smoke exposure: No How often do you have a drink containing alcohol: never How many standard drinks containing alcohol do you have on a typical day: 1 or 2 How often do you have six or more drinks on one occasion: Never AUDIT-C Alcohol total score: 0 Non-prescribed substance use: denies use Caffeine: No How often does anyone, including family, friends and others, physically hurt you: never How often does anyone, including family, friends and others, insult or talk down to you: never How often does anyone, including family, friends and others, threaten you with harm: never How often does anyone, including family, friends and others, scream or curse at you: never service: No Exam Narrative: Exam Narrative: Constitutional: Appears well-developed and well-nourished. Alert. Conversant. Non toxic. HENT: Head: Atraumatic. Nose: Nose normal. Mouth/Throat: Oral mucosa is clear and moist. no trismus. Pharynx normal. Tonsils symmetric. No tonsillar enlargement, erythema, or exudate. Eyes: Conjunctivae normal. EOM normal. Pupils equal, round, and reactive to light. No scleral icterus. Neck: Normal range of motion. Neck supple. No tracheal deviation present. Cardiovascular: Normal rate, regular rhythm. No gallop. No friction rub. Soft diastolic murmur heard. Symmetric radial artery pulses . No JVD Pulmonary/Chest: Effort normal. No stridor. No respiratory distress. No wheezes. No rales. No rhonchi . No tenderness. Abdominal: Soft. No distension. No mass. No tenderness. No rebound. No guarding. Musculoskeletal: RUE: Normal range of motion. No tenderness. No deformity LUE: Normal range of motion. No tenderness. No deformity RLE: Normal range of motion. No edema. No tenderness. No deformity LLE: Normal range of motion. No edema. No tenderness. No deformity Lymph: No cervical adenopathy. Neurological: Mental status normal. Attention normal. Alert and oriented x3. GCS 15. Memory normal. Speech fluent. Cognition normal. Cranial Nerves intact II-XII except I did not formally test gag or visual acuity. EOMI. Palate elevates symmetrically and tongue protrudes in the midline. Strength: 5/5 trapezius on the right and left 5/5 deltoid on the right and left 5/5 biceps on the right and left 5/5 triceps on the right and left 5/5 caustic strength inspector on the right and left 5/5 thumb opposition on the right and left 5/5 finger abduction on the right and left 5/5 hip flexors (L3) on the right and left 5/5 quadriceps (L4) on the right and left 5/5 tibialis anterior on the right and left 5/5 EHL (L5) on the right and left 5/5 gastrocnemius (S1) on the right and left 5/5 hamstring on the right and left Sensation intact to light touch in both upper extremities (C4-T1) Sensation intact to light touch in Both lower extremities (L4-S1). Finger to nose and coordination normal. Gait normal. Skin: Skin is warm and dry. No rash noted. No pallor. Normal capillary refill. Psychiatric: Normal mood. Normal affect. Const: Vital Signs, click to edit/add: Vital Signs - 24 hr 02/02/25 12:21 02/02/25 15:11 02/02/25 15:30 Temperature 99 F 98.0 F Pulse Rate [Right Pulse Oximeter] 59 L 62 65 Respiratory Rate 18 18 Blood Pressure [Ri ght Upper Arm] 206/140 H 256/125 H 260/132 H Pulse Oximetry 98 98 Oxygen Delivery Me thod Room Air Room Air 02/02/25 16:00 02/02/25 16:30 02/02/25 16:44 Temperature Pulse Rate [Right Pulse Oximeter] 60 64 63 Respiratory Rate Blood Pressure [Ri ght Upper Arm] 252/137 H 249/126 H 265/122 H Pulse Oximetry Oxygen Delivery Me thod 02/02/25 17:00 02/02/25 17:30 02/02/25 17:57 Temperature 98.0 F Pulse Rate [Right Pulse Oximeter] 64 63 64 Respiratory Rate 16 Blood Pressure [Ri ght Upper Arm] 235/124 H 265/122 H 228/124 H Pulse Oximetry 98 Oxygen Delivery Me thod Room Air Course Course ED Course: 84-year-old gentleman with a history of poorly controlled, resistant hypertension, also recent diagnosis of dyslipidemia, presenting to the ER today after TIA symptoms that occurred 3 days ago on Saturday. He is neurologically intact here in the ER today and has not had any neurologic symptoms since Saturday afternoon. No sign of active stroke. At this point no indication for thrombolytics. Concern is for TIA. ABCD2 score is 3. Initial workup was to get CT, CTA, EKG, labs to look for modifiable risk factors that would cause TIA. Recheck-head CT back and shows possible small punctate hemorrhage in the left thalamus which anatomically could correlate with his symptoms of right cheek numbness and facial droop. Consult placed for Stroke Neurology. Discussed with Dr. melendez, stroke Neurology from [place]. Tele stroke consult was obtained. Stroke Neurology recommends that we admit the patient for monitoring overnight with repeat head CT tomorrow. Given the tiny nature of this suspected bleed, he does not feel that transfer to [place] for neuro surgical consultation would be warranted. Additionally he is actually 4 days out from when the symptoms 1st occurred so he is confident this bleed will almost certainly remained stable. Stroke neurology feels that this is probably hypertensive bleed from chronic uncontrolled hypertension. He does recommend treating the patient's blood pressure acutely with the plan to admit for gradual blood pressure reduction (similar to hypertensive emergency, with a goal for initial reduction over the next several hours by about 20%). Eventually goal would be to get closer to normal tension. Although typical guidelines would recommend managing systolic blood pressure down to around 140, in this case that is not advised. Additionally, with hold antiplatelets for least 2 weeks. While in the hospital, initiate regimen of oral antihypertensives try to get his blood pressure down, and keep it down once weaning off nicardipine drip. I discussed this plan of care with the patient and his family. They verbalized their understanding. Patient and his family were initially shocked about the finding of hypertensive hemorrhage and also little bit surprised that there is now some urgency in treating his blood pressure. It sounds like it has been present for decades (he was not allowed into the [employer] at age 21, because of his hypertension). Ultimately he consents to admission and treatment for his blood pressure with clinical monitoring. Discussed with our hospitalist, Kiara Carranza who agrees to admit to the hospitalist service. Vital Signs Vital signs: Initial Vital Signs Temperature 99 F 02/02/25 12:21 Temperature Source Temporal Artery Scan 02/02/25 12:21 Pulse Rate 59 L 02/02/25 12:21 Pulse Rhythm Regular 02/02/25 12:21 Pulse Strength 3+ Normal 02/02/25 12:21 Respiratory Rate 18 02/02/25 12:21 Blood Pressure 206/140 H 02/02/25 12:21 Blood Pressure Mean 162 H 02/02/25 12:21 Blood Pressure Position Sitting 02/02/25 12:21 Pulse Oximetry 98 02/02/25 12:21 Oxygen Delivery Method Room Air 02/02/25 12:21 Vital Signs Temperature 99 F 02/02/25 12:21 Pulse Rate 59 L 02/02/25 12:21 Respiratory Rate 18 02/02/25 12:21 Blood Pressure 206/140 H 02/02/25 12:21 Pulse Oximetry 98 02/02/25 12:21 Oxygen Delivery Method Room Air 02/02/25 12:21 Temperature 98.2 F 02/02/25 19:40 Pulse Rate 64 02/02/25 17:57 Respiratory Rate 16 02/02/25 19:40 Blood Pressure 179/92 H 02/02/25 19:50 Pulse Oximetry 97 02/02/25 19:40 Oxygen Delivery Method Room Air 02/02/25 19:40 Medications Administered Medications: Generic Name Dose Route Start Last Admin Trade Name Tiburcioq PRN Reason Stop Dose Admin Nicardipine/Sodium Chloride 20 mg in 200 mls @ 50 mls/hr 02/02/25 16:34 02/02/25 19:56 Nicardipine Infusion 0.1 Mg/Ml IV 50 mls/hr DIRECTED NIKA Infusion Protocol Medical Decision Making Lab Data Labs: Lab Results 02/02/25 02/02/25 Range/Units 13:28 13:44 WBC 9.26 (4.50-11.00) K/uL RBC 4.45 (4.30-5.90) m/uL Hgb 13.7 (13.5-17.5) gm/dL Hct 40.7 (37.0-53.0) % MCV 92 (80-100) fL MCH 31 (26-34) pg MCHC 34 (32-36) gm/dL RDW Coeff of Gisele 13.0 (11.5-15.5) % Plt Count 240 (140-440) K/uL Neut % (Auto) 75.7 H (42.0-72.0) % Lymph % (Auto) 13.5 L (20-44) % [place] % (Auto) 7.7 (0.0-11.0) % Eos % (Auto) 2.7 (0.0-7.0) % Baso % (Auto) 0.3 (0.0-3.0) % Neut # (Auto) 7.00 (1.7-7.0) K/uL Lymph # (Auto) 1.30 (0.90-2.90) K/uL [place] # (Auto) 0.70 (0.00-0.90) K/UL Eos # (Auto) 0.25 (0.00-0.50) K/uL Baso # (Auto) 0.03 (0.00-0.30) K/uL Abs Immat Gran (auto) 0.01 (0.00-0.30) K/uL Imm/Tot Granulo (auto) 0.1 % INR 1.04 (0.91-1.10) Sodium 139 (135-149) mmol/L Potassium 3.7 (3.6-5.1) mmol/L Chloride 104 (96-114) mmol/L Carbon Dioxide 27 (20-32) mmol/L Anion Gap 8 (7-15) mEq/L BUN 24 (7-30) mg/dL Creatinine 1.3 (0.5-1.5) mg/dL Estimated GFR 55 ml/min Glucose 103 (60-115) mg/dL Calcium 9.2 (8.4-10.6) mg/dL POC Troponin I High Sensi 15.4 (2.9-28.0) pg/mL Imaging Data CTA head and neck: Attestation: I have reviewed the pertinent imaging results. Radiologist's impression: Impression: CTA HEAD: 1. No hemodynamically significant stenosis within the posterior circulation. Mild stenosis at the right P2 segment. 2. No hemodynamically significant stenosis within the anterior circulation with mild stenosis at the origin of the left parietal branch. 3. Dural venous sinuses grossly unremarkable for the phase of enhancement. CTA NECK: 1. No hemodynamically significant extracranial vertebral stenosis. 2. No hemodynamically significant stenosis extracranial carotid arteries. 3. Incidental bovine configuration of the aortic arch. Fusiform enlargement of the ascending thoracic aorta measuring 4.8 centimeters at the pulmonary artery level. Ascending aorta is incompletely included in the examination CT scan - head: Attestation: I have reviewed the pertinent imaging results. Radiologist's impression: IMPRESSION: 1. 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 Considering the extensive white matter disease, MRI may have improved sensitivity for the detection of lacunar infarcts. 2. Focal high density within the central michael and left thalamus. These are somewhat equivocal but would favor focal calcification or alternatively vascular anomalies over punctate hemorrhage. ECG Data Attestation: I personally reviewed and interpreted this ECG as follows: Interpretation: Sinus bradycardia with first-degree AV block Rate 59 LA interval 228 Normal QRS axis. Large QRS voltages consistent with left ventricular hypertrophy and repolarization abnormality. There are T-wave changes consistent with LVH as well. No clear ST segment elevation or depression. QT through 438, QTC 433 Discharge Plan Discharge Clinical Impression: Severe uncontrolled hypertension, Nontraumatic thalamic hemorrhage Patient Disposition: Admitted As Inpatient
--- NOTE | 2025-02-02 12:50 | CRLHL7_ITS ---
For Patients: As a result of the Century Cures Act, medical imaging exams and procedure reports are released immediately into your electronic medical record. You may view this report before your referring provider. If you have questions, please contact your health care provider. INDICATION: Right facial numbness and speech issues, transient ischemic attack 3 days prior. TECHNIQUE: CT head without contrast. COMPARISON: None. FINDINGS: CSF spaces: Within normal limits for age. Brain parenchyma: No mass effect. Low-density within the deep white matter, confluent in the centrum semiovale. Old lacunar infarct right hamm radiata. Old lacunar infarct left thalamus. Minimal areas of punctate higher density, best appreciated within the central michael (3, 24) and left thalamus (3, 30). Diffuse cerebral atrophy. Skull base and calvarium: The visualized paranasal sinuses and mastoid air cells demonstrate no acute or significant findings. The visualized orbits are grossly unremarkable. No skull fractures. IMPRESSION: 1. 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 Considering the extensive white matter disease, MRI may have improved sensitivity for the detection of lacunar infarcts. 2. Focal high density within the central michael and left thalamus. These are somewhat equivocal but would favor focal calcification or alternatively vascular anomalies over punctate hemorrhage. Please note that all CT scans at this facility use dose modulation, iterative reconstruction, and/or weight-based dosing when appropriate to reduce radiation dose to as low as reasonably achievable. Dictated by Jeramy Jones MD @ 02/02/2025 2:36:41 PM (Electronically Signed)
--- NOTE | 2025-02-02 12:51 | CT_ITS ---
Patient: COURTNEY BRUNO Facility:?[facility] Patient ID:?[id number] Site Patient ID:?[id number]. Site :?[id number] Study:?CT-Neck Angio Angio 95CC ISOVUE 370 NON ACUTE-02/02/2025 2:26:43 PM Ordering Physician:Brea Izaguirre Final Report: DATE: 02/02/2025 CLINICAL HISTORY: Patient with focal neurological deficits. TECHNIQUE: Standard helical CT image acquisition through the head and neck was performed after intravenous contrast bolus enhancement. 2D and 3D MIP images for post- processing were performed and interpreted on an independent workstation and 3D images were permanently archived. COMPARISON: CT same day. FINDINGS: The origins of the great vessels from the aortic arch are patent. The origin of the right vertebral artery is patent. The origin of the left vertebral artery is patent. The common carotid arteries are patent There is no stenosis at the origin of the right internal carotid artery. There is no stenosis at the origin of the left internal carotid artery. The rest of the cervical segments of the internal carotid arteries are patent up to their intracranial segments. The intracranial segments of the internal carotid arteries are patent. The vertebral arteries are codominant. The cervical segments of the vertebral arteries are patent. The intracranial segments of the vertebral arteries are patent. The middle cerebral arteries are normal without aneurysm or proximal occlusion identified. The anterior cerebral arteries are normal without aneurysm or proximal occlusion identified. The anterior communicating artery is well visualized and appears normal. The basilar artery is normal without aneurysm or occlusion. The posterior cerebral arteries are normal without aneurysm or proximal occlusion. There is normal opacification of major intracranial venous structures. There is dilatation of the ascending aorta to 4.8cm. The visualized lung apices are unremarkable The thyroid gland is unremarkable. The soft tissues of the neck are unremarkable. There are degenerative changes in the cervical spine. IMPRESSION: 1. Patent cervical and proximal intracranial vasculature. 2. Partially visualized dilatation of the ascending aorta to 4.8cm. Further evaluation with a CTA of the chest is recommended. Please note that all CT scans at this facility use dose modulation, iterative reconstruction, and/or weight-based dosing when appropriate to reduce radiation dose to as low as reasonably achievable. Dictated by Pearl Gibson MD @ 02/02/2025 3:56:45 PM Signed by:?Pearl Gibson MD @02/02/2025 3:56:45 PM (Electronic Signature)
--- NOTE | 2025-02-02 12:51 | CT_ITS ---
Patient: COURTNEY BRUNO Facility:?[facility] Patient ID:?[id number] Site Patient ID:?[id number]. Site :?[id number] Study:?CT-Head Angio 95CC ISOVUE 370 NON ACUTE-02/02/2025 2:26:17 PM Ordering Physician:Brea Izaguirre Final Report: DATE: 02/02/2025 CLINICAL HISTORY: Patient with focal neurological deficits. TECHNIQUE: Standard helical CT image acquisition through the head and neck was performed after intravenous contrast bolus enhancement. 2D and 3D MIP images for post- processing were performed and interpreted on an independent workstation and 3D images were permanently archived. COMPARISON: CT same day. FINDINGS: The origins of the great vessels from the aortic arch are patent. The origin of the right vertebral artery is patent. The origin of the left vertebral artery is patent. The common carotid arteries are patent There is no stenosis at the origin of the right internal carotid artery. There is no stenosis at the origin of the left internal carotid artery. The rest of the cervical segments of the internal carotid arteries are patent up to their intracranial segments. The intracranial segments of the internal carotid arteries are patent. The vertebral arteries are codominant. The cervical segments of the vertebral arteries are patent. The intracranial segments of the vertebral arteries are patent. The middle cerebral arteries are normal without aneurysm or proximal occlusion identified. The anterior cerebral arteries are normal without aneurysm or proximal occlusion identified. The anterior communicating artery is well visualized and appears normal. The basilar artery is normal without aneurysm or occlusion. The posterior cerebral arteries are normal without aneurysm or proximal occlusion. There is normal opacification of major intracranial venous structures. There is dilatation of the ascending aorta to 4.8cm. The visualized lung apices are unremarkable The thyroid gland is unremarkable. The soft tissues of the neck are unremarkable. There are degenerative changes in the cervical spine. IMPRESSION: 1. Patent cervical and proximal intracranial vasculature. 2. Partially visualized dilatation of the ascending aorta to 4.8cm. Further evaluation with a CTA of the chest is recommended. Please note that all CT scans at this facility use dose modulation, iterative reconstruction, and/or weight-based dosing when appropriate to reduce radiation dose to as low as reasonably achievable. Dictated by Pearl Gibson MD @ 02/02/2025 3:57:17 PM Signed by:?Pearl Gibson MD @02/02/2025 3:57:17 PM (Electronic Signature)
[2025-02-02 13:39] LABS: Hematocrit* 40.7 % (37.0-53.0); Hemoglobin* 13.7 gm/dL (13.5-17.5); Immature Granulocytes Abs Auto 0.01 K/uL (0.00-0.30); Immature Granulocytes Pct Auto 0.1 %; Mean Corpuscular HGB Conc 34 gm/dL (32-36); Mean Corpuscular Hemoglobin 31 pg (26-34); Mean Corpuscular Volume 92 fL (80-100); RDW Coefficient of Variation % 13.0 % (11.5-15.5); Red Blood Count* 4.45 m/uL (4.30-5.90); White Blood Count* 9.26 K/uL (4.50-11.00)
[2025-02-02 13:41] LABS: Lymphocytes Absolute Auto 1.30 K/uL (0.90-2.90); Slide Review Reflex No
[2025-02-02 13:47] LABS: Chloride* 104 mmol/L (96-114); Potassium* 3.7 mmol/L (3.6-5.1); Sodium* 139 mmol/L (135-149)
[2025-02-02 13:49] LABS: INR 1.04 (0.91-1.10); Prothrombin Time 14.4 Seconds
[2025-02-02 13:50] LABS: Anion Gap 8 mEq/L (7-15); Blood Urea Nitrogen* 24 mg/dL (7-30); Calcium* 9.2 mg/dL (8.4-10.6); Carbon Dioxide* 27 mmol/L (20-32); Creatinine* 1.3 mg/dL (0.5-1.5); Estimated Glomerular Filt Rate 55 ml/min; Glucose* 103 mg/dL (60-115)
[2025-02-02] MEDS: NICARDIPINE INFUSION 0.1 mg/ml 20 MG/200 ML BAG 50 MG IV ×2 (17:14→20:48)
--- NOTE | 2025-02-02 20:15 | PM.IMHP1 ---
Assessment and Plan Assessment and plan (1) Nontraumatic thalamic hemorrhage: Problem comment: -CT head shows Cerebral atrophy with extensive low-density within the deep white matter, likely microangiopathy as well as old lacunar infarctions within the left thalamus and right hamm radiata -right-sided facial numbness and drooling, speech changes have resolved; onset and resolution of symptoms 01/30 -holding home aspirin, no enoxaparin, SCDs for VTE PPX -Tele Neurology recommendations: Admit to the ICU - can be admitted locally as symptoms resolved and event occurred ~3 days prior to presentation, especially with local inclement weather NO anti-thrombotics Check PT/PTT/INR - also checking A1c and lipid panel Nicardipine drip, titrate to SBP <180 Start Oral anti hypertensive medications, titrate as tolerated -> increased current carvedilol dose and restarted amlodipine Discussed with patient and family - adverse effects of fatigue/slowness are unlikely to be related to medication but likely result of lowering of persistently extremely elevated BP Repeat CT head tomorrow AM Close neuro monitoring Stat CT head if any change in exam -> nursing staff aware NO AED warranted NO Hypertonics warranted Swallow evaluation prior to PO intake Therapy evaluation Status: Acute (2) Severe uncontrolled hypertension: Problem comment: Per PCP, Patient's uncontrolled blood pressure is due to patient being intolerant of most all blood pressure medications. I have urged him to try medications over and over again to see if he can find something he can tolerate despite his previous history of futility with blood pressure medicines The patient has been prescribed the following medications for elevated blood pressure: Carvedilol - fatigue, worsening anxiety Chlorthalidone Valsartan - LE pain, need for walker Doxazosin Potassium Chloride Atenolol- bradycardia Candesartan Clonidine Hydrochlorothiazide Lisinopril Losartan Olmesartan Hydralazine Nifedipine - itching -currently on carvedilol 6.25 mg. He tells me the plan was to add a 3rd dose. We have instead discussed increasing his b.i.d. dosing to 9.375 starting this evening -was started on amlodipine 2.5 mg on 01/28 but stopped it thinking his stroke symptoms on 01/30 were a side effect. Agreeable to restart this dose which he has been taking at 1:00 p.m. Echocardiogram 01/11/2025 Final Impressions: 1. Normal left ventricular size, severely increased wall thickness in a concentric pattern, normal global systolic function, calculated EF of 59 %. 2. Mildly enlarged left atrium. 3. The aortic valve is trileaflet and sclerotic, no stenosis and trivial regurgitation. 4. The mitral valve is sclerotic, mild to moderate mitral regurgitation. 5. Tricuspid valve is normal, mild-moderate tricuspid regurgitation. 6. The inferior vena cava is dilated, respiratory size variation greater than 50%. 7. Dilated ascending aorta, diameter of 4.8 cm (upper limit of normal for age, sex, and BSA is 4.3 cm*), Height Index 2.73. 8. No echocardiographic evidence of aortic coarctation. Comparison Compared to prior exam of 12/10/2017: - Mitral regurgitation has increased. - Tricuspid regurgitation has increased. - aortic aneurysm is increased in size - LVH has increased. Status: Acute (3) Stage 3a chronic kidney disease (CKD): Problem comment: -creatinine 1.3, baseline 1.32-1.53 -continue to monitor, avoid nephrotoxic medications Status: Acute (4) Ascending aorta dilation: Problem comment: -CT shows partially visualized dilatation of the ascending aorta to 4.8cm. Further evaluation with a CTA of the chest is recommended -CTA chest ordered for morning Status: Acute Total Time Spent Total Time Spent: Today I spent 75 minutes seeing the patient, reviewing Expanse and EPIC notes/diagnostics, discussing the care plan with our care time that includes social work, PT/OT, pharmacy, RT, fdc and documenting my impressions and plan in the medical record. Acuity is characterized as high and reflected in: Resistant hypertension requiring IV antihypertensive drip in setting of recent intraparenchymal hemorrhage This patient will require hospital services as outlined in the assessment and plan in order to stabilize and be safely discharged to a lower level of care. Because of the risk and acuity as described above, this patient cannot be managed at a lower level of care. Hospitalist- H&P: HPI History of Present Illness Date Seen: 02/02/25 Chief complaint: Stroke like symptoms saturday Narrative: Koffi Winters is a 84 year old male past medical history significant for chronic poorly controlled resistant hypertension with several sensitivities to medications, stage IIIA CKD, bilateral inguinal hernia, glucose intolerance, melanosis coli is admitted to the medical floor from the ED for management distant hypertension and left thalamic IPH. Patient is seen with and 2 daughters at bedside. Hypertension has been present since early adulthood. Apparently he was discharged from the [employer] as it was uncontrolled. Has tried several antihypertensives, his PCP has a list of those in EMR. He has been on carvedilol 6.25 mg twice daily without appropriate control. He was started on amlodipine 2.5 mg this past . On Saturday, 01/29, he noted onset of numbness sensation over the right side of his chin as well as drooling from the right side of his mouth when drinking. Also reports change in his speech during this time. This lasted several minutes then completely resolved. He tells me there has been no recurrence. His daughter found out and insisted that he come to the ED tonight. Imaging shows left thalamic IPH. Tele neurology was consulted in the ED, recommending admission for further workup and hypertension management. Currently, denies headaches or dizziness. States he has not had a headache in several years. Denies chest pain or shortness of breath. Denies recent fevers. Denies abdominal pain outside of his chronic hernia. Denies vomiting or diarrhea. PCP is Dr. Trejo. Never a smoker. Denies alcohol use. Has a living will and tells me he wishes to be DNR/DNI. Review of Systems Narrative: REVIEW OF SYSTEMS: Complete review of systems performed and negative unless otherwise stated in HPI or below. Medical Decision Making Medical Decision Making Code Status: DNR/DNI Has patient completed a Health Care Directive: Yes [facility] Medical History Severe uncontrolled hypertension ?I10 - Essential (primary) hypertension (ICD-10) Non-recurrent bilateral inguinal hernia without obstruction or gangrene ?K40.20 - Bilateral inguinal hernia, without obstruction or gangrene, not specified as recurrent (ICD-10) Diverticula of colon ?K57.30 - Diverticulosis of large intestine without perforation or abscess without bleeding (ICD-10) Colon polyp ?K63.5 - Polyp of colon (ICD-10) Melanosis coli ?K63.89 - Other specified diseases of intestine (ICD-10) Stage 3a chronic kidney disease (CKD) ?N18.31 - Chronic kidney disease, stage 3a (ICD-10) Anxiety ?F41.9 - Anxiety disorder, unspecified (ICD-10) HTN (hypertension) ?I10 - Essential (primary) hypertension (ICD-10) Glucose intolerance ?E74.39 - Other disorders of intestinal carbohydrate absorption (ICD-10) Surgical History Status post bilateral inguinal hernia repair ?Z98.890 - Other specified postprocedural states (ICD-10) ?Z87.19 - Personal history of other diseases of the digestive system (ICD-10) Family History Father Prostate cancer Other High blood pressure Social History Narrative: He is a retired [employer] and lives with his . He rarely drinks alcohol. He does not smoke. Code status is full What is your current living situation?: I presently have a place to live Problems where you live: no known problems Problems where you live details: N//A In the past 12 months, utilities in danger of being shut off: no In past 12 months, lack of transportation kept you from medical appts, meetings, work, or getting things needed for daily living: no In the past 12 mos, have been you worried that your food would run out before you had money to buy more?: never true In the past 12 mos, the food you bought just didn't last and you didn't have money to buy more?: never true Highest level of school completed/degree received: some college, no degree Smoking Status: Never smoker Do you use any of these nicotine containing products: None Second hand tobacco smoke exposure: Yes (Occasional) How often do you have a drink containing alcohol: never How many standard drinks containing alcohol do you have on a typical day: 1 or 2 How often do you have six or more drinks on one occasion: Never AUDIT-C Alcohol total score: 0 Non-prescribed substance use: denies use Caffeine: Yes (Rare coffee) How often does anyone, including family, friends and others, physically hurt you: never How often does anyone, including family, friends and others, insult or talk down to you: never How often does anyone, including family, friends and others, threaten you with harm: never How often does anyone, including family, friends and others, scream or curse at you: never service: No Meds Home Medications and Allergies Home Medications ?Medication ?Instructions ?Recorded ?Confirmed ?Type aspirin 81 mg tablet,delayed 81 mg PO DAILY 07/05/23 11/17/24 History release cholecalciferol (vitamin D3) 50 50 mcg PO DAILY 07/05/23 11/17/24 History mcg (2,000 unit) capsule coenzyme Q10 100 mg capsule (Co 100 mg PO DAILY 07/05/23 11/17/24 History Q-10) magnesium oxide 400 mg PO DAILY 07/05/23 11/17/24 History potassium chloride 10 mEq 10 meq PO DAILY #30 tabs 07/09/23 11/17/24 Rx tablet,extended release tamsulosin 0.4 mg capsule (Flomax) 0.4 mg PO DAILY 11/13/24 11/17/24 History hydrocodone 5 mg-acetaminophen 325 1 tab PO Q6H PRN pain #25 tabs 11/17/24 Rx mg tablet Allergies Allergy/AdvReac Type Severity Reaction Status Date / Time nifedipine Allergy Unknown Verified 02/02/25 14:27 Exam Narrative: Exam Narrative: PHYSICAL EXAM General: Pleasant, conversant, NAD HEENT: Normocephalic, atraumatic, sclera white, EOMI, oral mucosa moist Cardiovascular: RRR, S1S2. No pitting edema Pulmonary: CTA bilaterally without rhonchi, rales, expiratory wheezes. No dyspnea on room air Abdominal: Soft, nondistended, NTTP, no guarding Neurological: Alert, answering questions appropriately, cranial nerves intact, no focal findings currently Extremities: No gross joint deformity or swelling. AROMI. Neurovascularly intact Skin: Warm, dry. Const: Vital Signs, click to edit/add: Vital Signs - 24 hr 02/02/25 12:21 02/02/25 15:11 02/02/25 15:30 Temperature 99 F 98.0 F Pulse Rate [Right Pulse Oximeter] 59 L 62 65 Respiratory Rate 18 18 Blood Pressure [Ri ght Arm] Blood Pressure [Ri ght Upper Arm] 206/140 H 256/125 H 260/132 H Pulse Oximetry 98 98 Oxygen Delivery Me thod Room Air Room Air 02/02/25 16:00 02/02/25 16:30 02/02/25 16:44 Temperature Pulse Rate [Right Pulse Oximeter] 60 64 63 Respiratory Rate Blood Pressure [Ri ght Arm] Blood Pressure [Ri ght Upper Arm] 252/137 H 249/126 H 265/122 H Pulse Oximetry Oxygen Delivery Me thod 02/02/25 17:00 02/02/25 17:30 02/02/25 17:57 Temperature 98.0 F Pulse Rate [Right Pulse Oximeter] 64 63 64 Respiratory Rate 16 Blood Pressure [Ri ght Arm] Blood Pressure [Ri ght Upper Arm] 235/124 H 265/122 H 228/124 H Pulse Oximetry 98 Oxygen Delivery Me thod Room Air 02/02/25 19:40 02/02/25 19:50 Temperature 98.2 F Pulse Rate [Right Pulse Oximeter] Respiratory Rate 16 Blood Pressure [Ri ght Arm] 172/96 H 179/92 H Blood Pressure [Ri ght Upper Arm] Pulse Oximetry 97 Oxygen Delivery Me thod Room Air Hospitalist - H&P: Result Labs Labs: Short CBC 02/02/25 Range/Units 13:28 WBC 9.26 (4.50-11.00) K/uL Hgb 13.7 (13.5-17.5) gm/dL Hct 40.7 (37.0-53.0) % Plt Count 240 (140-440) K/uL BMP 02/02/25 13:28 Sodium 139 Potassium 3.7 Chloride 104 Carbon Dioxide 27 BUN 24 Creatinine 1.3 Glucose 103 Calcium 9.2 ECG Attestation: I personally reviewed and interpreted this ECG as follows: Interpretation: Sinus Cruzito, first-degree AV block Imaging CT scan - head: Attestation: I have reviewed the pertinent imaging results. Radiologist's impression: CSF spaces: Within normal limits for age. Brain parenchyma: No mass effect. Low-density within the deep white matter, confluent in the centrum semiovale. Old lacunar infarct right hamm radiata. Old lacunar infarct left thalamus. Minimal areas of punctate higher density, best appreciated within the central michael (3, 24) and left thalamus (3, 30). Diffuse cerebral atrophy. Skull base and calvarium: The visualized paranasal sinuses and mastoid air cells demonstrate no acute or significant findings. The visualized orbits are grossly unremarkable. No skull fractures. IMPRESSION: 1. 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 Considering the extensive white matter disease, MRI may have improved sensitivity for the detection of lacunar infarcts. 2. Focal high density within the central michael and left thalamus. These are somewhat equivocal but would favor focal calcification or alternatively vascular anomalies over punctate hemorrhage. CTA head: Attestation: I have reviewed the pertinent imaging results. Radiologist's impression: CTA head/neck: The origins of the great vessels from the aortic arch are patent. The origin of the right vertebral artery is patent. The origin of the left vertebral artery is patent. The common carotid arteries are patent There is no stenosis at the origin of the right internal carotid artery. There is no stenosis at the origin of the left internal carotid artery. The rest of the cervical segments of the internal carotid arteries are patent up to their intracranial segments. The intracranial segments of the internal carotid arteries are patent. The vertebral arteries are codominant. The cervical segments of the vertebral arteries are patent. The intracranial segments of the vertebral arteries are patent. The middle cerebral arteries are normal without aneurysm or proximal occlusion identified. The anterior cerebral arteries are normal without aneurysm or proximal occlusion identified. The anterior communicating artery is well visualized and appears normal. The basilar artery is normal without aneurysm or occlusion. The posterior cerebral arteries are normal without aneurysm or proximal occlusion. There is normal opacification of major intracranial venous structures. There is dilatation of the ascending aorta to 4.8cm. The visualized lung apices are unremarkable The thyroid gland is unremarkable. The soft tissues of the neck are unremarkable. There are degenerative changes in the cervical spine. IMPRESSION: 1. Patent cervical and proximal intracranial vasculature. 2. Partially visualized dilatation of the ascending aorta to 4.8cm. Further evaluation with a CTA of the chest is recommended.
[2025-02-02] MEDS: SODIUM CHLORIDE 0.9 % (FLUSH) 10 ML SYRINGE 5 ML IVF (21:13)
[2025-02-02] MEDS: NICARDIPINE INFUSION 0.1 mg/ml 20 MG/200 ML BAG 25 MG IV (22:18)
[2025-02-03] VITALS (32 sets, daily range): BP systolic 142–219; BP diastolic 85–120; PULSE 61–73; RESP 16–18; TEMP 36.6–37.1; O2SAT 93–99
[2025-02-03] MEDS: NICARDIPINE INFUSION 0.1 mg/ml 20 MG/200 ML BAG 25 MG IV (04:01)
[2025-02-03 06:16] LABS: Hematocrit* 40.2 % (37.0-53.0); Hemoglobin* 13.7 gm/dL (13.5-17.5); Mean Corpuscular HGB Conc 34 gm/dL (32-36); Mean Corpuscular Hemoglobin 31 pg (26-34); Mean Corpuscular Volume 91 fL (80-100); Red Blood Count* 4.42 m/uL (4.30-5.90); White Blood Count* 8.11 K/uL (4.50-11.00)
--- NOTE | 2025-02-03 06:17 | PC.NURSE ---
End of shift note [id number]: Pt noted to be A&Ox4 and able to make needs known. The only confusion noted upon assessment?was?pt?could not recall?correct?spelling of one of his daughter?s names when asked. He has been denying pain and?headache?throughout the shift. Pt has been afebrile and on RA throughout the shift. He has been on?Nicardipine?drip with titration performed per protocol. Pt transferring/ambulating with SBA using gait belt and IV pole. He has been refusing FWW when educated?though?denies dizziness/lightheadedness when up out of bed.?Pt has been?continent?of bladder throughout the shift and is tolerating?regular?diet as he has been denying nausea with no vomiting noted. Tele in place with NSR with first degree block and BBB noted which is unchanged when compared to EKG previously?completed in?ED. PERRLA.?Face noted to be symmetrical upon assessment. Pt denies numbness/tingling when asked.?Bed alarm on for safety and call light within reach.??
[2025-02-03 06:25] LABS: Slide Review Reflex No
[2025-02-03 06:35] LABS: Chloride* 108 mmol/L (96-114); Potassium* 3.3 mmol/L (3.6-5.1); Sodium* 140 mmol/L (135-149)
[2025-02-03 06:38] LABS: Blood Urea Nitrogen* 23 mg/dL (7-30); Creatinine* 1.2 mg/dL (0.5-1.5); Est. Creatinine Clearance* 47.46; Estimated Glomerular Filt Rate 60 ml/min
[2025-02-03 06:39] LABS: Anion Gap 7 mEq/L (7-15); Calcium* 9.1 mg/dL (8.4-10.6); Carbon Dioxide* 25 mmol/L (20-32); Cholesterol* 193 mg/dL (90-199); Glucose* 107 mg/dL (60-115); HDL Cholesterol* 50 mg/dL (>=40); Triglycerides* 68 mg/dL (40-149)
[2025-02-03 06:53] LABS: INR 1.06 (0.91-1.10); Prothrombin Time 14.7 Seconds
--- NOTE | 2025-02-03 08:00 | CRLHL7_ITS ---
For Patients: As a result of the Century Cures Act, medical imaging exams and procedure reports are released immediately into your electronic medical record. You may view this report before your referring provider. If you have questions, please contact your health care provider. INDICATION: Partially visualized dilated ascending aorta on a neuro angio. Completion chest CT for further evaluation. COMPARISON: None specifically of the chest TECHNIQUE: : CT examination of the chest was performed following the uneventful intravenous administration of 95 cc of Isovue 370.Thin axial sections were obtained from the thoracic inlet through the lung bases. 3D reformats/MIP imaging was provided. Please note that all CT scans at this facility use dose modulation, iterative reconstruction, and/or weight-based dosing when appropriate to reduce radiation dose to as low as reasonably achievable. FINDINGS: : HEART and MEDIASTINUM: The heart size is minimally enlarged. There is no mediastinal or hilar adenopathy or mass. No pericardial effusion. Atherosclerotic vascular calcifications are observed. AORTA: Fusiform aneurysmal dilation of the ascending aorta maximally measuring 4.9 centimeters. There is no evidence that this is currently unstable and there is no evidence of dissection on this exam. Fusiform dilation elsewhere of the aortic arch and descending thoracic aorta. The mid arch measures 3.0 centimeters and the mid descending aorta measures 3.5 centimeters. PULMONARY ARTERY DISTRIBUTION: No evidence of pulmonary embolus LUNGS and PLEURAL SPACES: Scattered linear opacities probably due to atelectasis. No focal consolidation, infiltrate or mass. No pleural effusion or pneumothorax. No suspicious nodule. No pleural effusion or pneumothorax. VISUALIZED UPPER ABDOMEN: The limited visualized upper abdominal structures appear normal. OSSEOUS STRUCTURES: Age-appropriate appearance. No acute fracture or destructive process. TUBES and LINES: None. IMPRESSION: 1. Top-normal size heart. No mediastinal or hilar adenopathy or mass. 2. Fusiform aneurysmal dilation of ascending aorta maximally measuring 4.9 centimeters. There is no evidence that this is unstable/leaking and there was no evidence of dissection at this time 3. No finding of pulmonary embolus. 4. Linear opacities probably due to atelectasis. No consolidation, infiltrate or mass. No pleural effusion or pneumothorax. Please note that all CT scans at this facility use dose modulation, iterative reconstruction, and/or weight-based dosing when appropriate to reduce radiation dose to as low as reasonably achievable. Dictated by Tai Moon MD @ 02/03/2025 8:54:41 AM (Electronically Signed)
--- NOTE | 2025-02-03 08:00 | CRLHL7_ITS ---
For Patients: As a result of the Century Cures Act, medical imaging exams and procedure reports are released immediately into your electronic medical record. You may view this report before your referring provider. If you have questions, please contact your health care provider. INDICATION: Repeat evaluation for intraparenchymal hemorrhage, known left thalamic IPH. COMPARISON: None. TECHNIQUE: CT of the brain / head without intravenous contrast. Multiplanar axial, coronal, and sagittal reformats were reconstructed. FINDINGS: There is a 3 millimeter focus of hyperdensity in the medial posterior left thalamus that is unchanged compared to prior. There is a 3 millimeter focus of hyperdensity in the central michael on series 3, image 20 that is unchanged. These are equivocal for hemorrhage given the small size and lack of adjacent edema. Age-related parenchymal volume loss. No acute or subacute cortically based infarct. Near confluent periventricular white matter hypodensities may be related to chronic microvascular ischemia. No mass or mass effect. Normal ventricles. No skull fractures. No worrisome focal bone lesion. IMPRESSION: Similar left thalamic and pontine hyperdensity, not definitively acute intracranial hemorrhage. Please note that all CT scans at this facility use dose modulation, iterative reconstruction, and/or weight-based dosing when appropriate to reduce radiation dose to as low as reasonably achievable. Dictated by Mya Hodges MD @ 02/03/2025 8:49:04 AM (Electronically Signed)
--- NOTE | 2025-02-03 11:28 | P.IMPN_ITS ---
Assessment and Plan Assessment and plan (1) Nontraumatic thalamic hemorrhage: Problem comment: - 02/02 CT: Focal high density within central michael and L thalamus, somewhat equivocal, favor focal calcification or alternatively vascular anomalies over punctate hemorrhage - given this finding, stroke neurology recommended repeat CT and monitoring - 02/03 CT: Similar left thalamic and pontine hyperdensity, not definitively acute intracranial hemorrhage - followed by Stroke Neurology, recommend holding aspirin until 02/16/2025, outpatient neurology follow-up - therapies following (no PT or [employer]ITOR CHASSIS needs identified, outpatient OT f/u recommended) Status: Acute (2) Severe uncontrolled hypertension: Problem comment: - long history of medication intolerance as noted in H&P - Amlodipine 2.5mg added to regimen 01/28 but he stopped this after his TIA symptoms 01/30 (thought this was a side effect), agreeable to restarting this on admit - 02/03: Carvedilol has been increased from 6.25mg BID to 9.375mg BID (initiated 02/02 pm) and Amlodipine increased from 2.5 -> 5mg - current goal is SBP 150-180, ultimate goal normotension Status: Acute (3) Ascending aorta dilation: Problem comment: - 02/02: CT shows partially visualized dilatation of the ascending aorta to 4.8cm. 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 No evidence that this is unstable/leaking and there was no evidence of dissection at this time, stable per TTE in December - routine Cardiology f/u Status: Acute (4) Stage 3a chronic kidney disease (CKD): Problem comment: -creatinine 1.3, baseline 1.32-1.53 -continue to monitor, avoid nephrotoxic medications Status: Acute Plan - per above, potentially home tomorrow pending BP control - and 3 daughters updated bedside, questions answered Subjective Date Seen: 02/03/25 Interval history: Koffi was admitted to the hospital yesterday after presenting to the ER for concerns of a TIA. On Saturday, 01/30 he had a brief period of numbness on his right cheek and lip with trouble speaking and difficulty swallowing. His symptoms resolved within a 1/2 hour. He had recently started Amlodipine, stopped this on Saturday after the above incident (long history of difficult to control HTN with multiple medication intolerances). In the ER: Presenting blood pressure 206/140, Head CT revealed a focal area of high density in central michael and L thalamus (equivocal, but possible punctate hemorrhage). Stroke Neurology consult and recommended a nicardipine drip and repeat head CT today. Head CT this morning stable (no definitive bleed). He also had a CTA of the chest this morning, given known aneurysmal dilatation of his ascending aorta (followed by Cardiology). This measures 4.9cm (was 4.8cm on recent TTE) without evidence of instability, leakage, or dissection. Tolerated nicardipine drip overnight with improvement in systolic blood pressure to 140-160s. Home carvedilol dosing increased from 6.25mg BID --> 9.375mg BID and amlodipine 2.5mg mid day was added back to regimen. This morning patient has no headache. He has no chest pain. He has no focal neurologic deficits or concerns for hospitalist team. Family bedside today. Exam Narrative: Exam Narrative: GEN: Alert and oriented, sitting comfortably in bedside chair HEENT: EOMIs bilaterally, no scleral icterus, no facial droop, tongue protrudes midline CV: RRR, No concerning murmurs R: LCTA bilaterally Ext: wwp, no concerning edema Skin: No concerning skin lesions or rashes on exposed skin Neuro: Negative Romberg, no resting tremor, normal rapid alternating movements, ambulating well with PT Psych: Appropriate Const: Vital Signs, click to edit/add: Vital Signs - 24 hr 02/02/25 12:21 02/02/25 15:11 02/02/25 15:30 Temperature 99 F 98.0 F Pulse Rate Pulse Rate [Right Pulse Oximeter] 59 L 62 65 Respiratory Rate 18 18 Blood Pressure [Ri ght Arm] Blood Pressure [Ri ght Upper Arm] 206/140 H 256/125 H 260/132 H Pulse Oximetry 98 98 Oxygen Delivery Me thod Room Air Room Air 02/02/25 16:00 02/02/25 16:30 02/02/25 16:44 Temperature Pulse Rate Pulse Rate [Right Pulse Oximeter] 60 64 63 Respiratory Rate Blood Pressure [Ri ght Arm] Blood Pressure [Ri ght Upper Arm] 252/137 H 249/126 H 265/122 H Pulse Oximetry Oxygen Delivery Me thod 02/02/25 17:00 02/02/25 17:30 02/02/25 17:57 Temperature 98.0 F Pulse Rate Pulse Rate [Right Pulse Oximeter] 64 63 64 Respiratory Rate 16 Blood Pressure [Ri ght Arm] Blood Pressure [Ri ght Upper Arm] 235/124 H 265/122 H 228/124 H Pulse Oximetry 98 Oxygen Delivery Me thod Room Air 02/02/25 19:40 02/02/25 19:50 02/02/25 20:00 Temperature 98.2 F Pulse Rate Pulse Rate [Right Pulse Oximeter] 81 68 Respiratory Rate 16 Blood Pressure [Ri ght Arm] 172/96 H 179/92 H 174/94 H Blood Pressure [Ri ght Upper Arm] Pulse Oximetry 97 Oxygen Delivery Ri thod Room Air 02/02/25 20:13 02/02/25 20:15 02/02/25 20:17 Temperature Pulse Rate 68 Pulse Rate [Right Pulse Oximeter] 69 Respiratory Rate 16 Blood Pressure [Ri ght Arm] 180/98 H Blood Pressure [Ri ght Upper Arm] Pulse Oximetry 93 Oxygen Delivery Ri thod Room Air 02/02/25 20:30 02/02/25 20:36 02/02/25 20:45 Temperature 98.1 F 98.1 F Pulse Rate Pulse Rate [Right Pulse Oximeter] 70 70 70 Respiratory Rate 20 20 Blood Pressure [Ri ght Arm] 192/99 H 192/99 H 184/103 H Blood Pressure [Ri ght Upper Arm] Pulse Oximetry 96 96 Oxygen Delivery Me thod Room Air Room Air 02/02/25 21:00 02/02/25 21:08 02/02/25 21:15 Temperature Pulse Rate Pulse Rate [Right Pulse Oximeter] 81 74 72 Respiratory Rate Blood Pressure [Ri ght Arm] 198/113 H 176/98 H Blood Pressure [Ri ght Upper Arm] Pulse Oximetry Oxygen Delivery Me thod 02/02/25 21:30 02/02/25 21:30 02/02/25 21:46 Temperature 98.1 F Pulse Rate Pulse Rate [Right Pulse Oximeter] 81 81 70 Respiratory Rate 16 Blood Pressure [Ri ght Arm] 175/109 H 175/109 H 175/100 H Blood Pressure [Ri ght Upper Arm] Pulse Oximetry 93 Oxygen Delivery Me thod Room Air 02/02/25 22:13 02/02/25 22:30 02/02/25 22:45 Temperature 98.5 F Pulse Rate Pulse Rate [Right Pulse Oximeter] 65 65 69 Respiratory Rate 16 Blood Pressure [Ri ght Arm] 163/97 H 163/110 H 172/90 H Blood Pressure [Ri ght Upper Arm] Pulse Oximetry 93 Oxygen Delivery Me thod Room Air 02/02/25 22:59 02/02/25 23:00 02/02/25 23:00 Temperature Pulse Rate 68 Pulse Rate [Right Pulse Oximeter] 65 63 Respiratory Rate 16 Blood Pressure [Ri ght Arm] 141/79 H Blood Pressure [Ri ght Upper Arm] Pulse Oximetry Oxygen Delivery Me thod 02/02/25 23:15 02/02/25 23:45 02/03/25 00:01 Temperature Pulse Rate Pulse Rate [Right Pulse Oximeter] 63 64 66 Respiratory Rate Blood Pressure [Ri ght Arm] 139/85 181/95 H 184/96 H Blood Pressure [Ri ght Upper Arm] Pulse Oximetry Oxygen Delivery Me thod 02/03/25 00:15 02/03/25 00:30 02/03/25 01:00 Temperature 98.2 F Pulse Rate Pulse Rate [Right Pulse Oximeter] 64 63 63 Respiratory Rate 16 Blood Pressure [Ri ght Arm] 154/89 H 156/86 H 142/85 H Blood Pressure [Ri ght Upper Arm] Pulse Oximetry 94 Oxygen Delivery Me thod Room Air 02/03/25 01:00 02/03/25 01:30 02/03/25 02:00 Temperature 98.7 F Pulse Rate Pulse Rate [Right Pulse Oximeter] 63 65 61 Respiratory Rate 16 Blood Pressure [Ri ght Arm] 151/87 H 160/85 H Blood Pressure [Ri ght Upper Arm] Pulse Oximetry 96 Oxygen Delivery Me thod Room Air 02/03/25 03:00 02/03/25 03:00 02/03/25 03:00 Temperature Pulse Rate 65 Pulse Rate [Right Pulse Oximeter] 61 64 Respiratory Rate 16 Blood Pressure [Ri ght Arm] 158/90 H Blood Pressure [Ri ght Upper Arm] Pulse Oximetry Oxygen Delivery Me thod 02/03/25 04:00 02/03/25 05:00 02/03/25 05:00 Temperature 98.2 F Pulse Rate Pulse Rate [Right Pulse Oximeter] 65 62 62 Respiratory Rate 18 Blood Pressure [Ri ght Arm] 146/92 H 164/86 H Blood Pressure [Ri ght Upper Arm] Pulse Oximetry 93 97 Oxygen Delivery Me thod Room Air Room Air 02/03/25 06:00 02/03/25 07:00 02/03/25 09:45 Temperature 98.6 F 98.1 F Pulse Rate 67 Pulse Rate [Right Pulse Oximeter] 67 66 Respiratory Rate 16 16 Blood Pressure [Ri ght Arm] 154/91 H 168/99 H Blood Pressure [Ri ght Upper Arm] Pulse Oximetry 95 97 Oxygen Delivery Me thod Room Air Room Air Labs Labs: Laboratory Results - last 24 hr 02/02/25 02/02/25 02/03/25 13:28 13:44 06:06 WBC 9.26 8.11 RBC 4.45 4.42 Hgb 13.7 13.7 Hct 40.7 40.2 MCV 92 91 MCH 31 31 MCHC 34 34 RDW Coeff of Gisele 13.0 Plt Count 240 253 Neut % (Auto) 75.7 H Lymph % (Auto) 13.5 L [place] % (Auto) 7.7 Eos % (Auto) 2.7 Baso % (Auto) 0.3 Neut # (Auto) 7.00 Lymph # (Auto) 1.30 [place] # (Auto) 0.70 Eos # (Auto) 0.25 Baso # (Auto) 0.03 Abs Immat Gran (auto) 0.01 Imm/Tot Granulo (auto) 0.1 INR 1.04 1.06 Sodium 139 140 Potassium 3.7 3.3 L Chloride 104 108 Carbon Dioxide 27 25 Anion Gap 8 7 BUN 24 23 Creatinine 1.3 1.2 Estimated Creat Clear 47.46 Estimated GFR 55 60 Glucose 103 107 Hemoglobin A1c 5.6 Calcium 9.2 9.1 POC Troponin I High Sensi 15.4 Triglycerides 68 Cholesterol 193 LDL Cholesterol, Calc 129 H HDL Cholesterol 50 TSH 2.610 Lab Acknowledgement 02/03/25 07:09 WBC RBC Hgb Hct MCV MCH MCHC RDW Coeff of Gisele Plt Count Neut % (Auto) Lymph % (Auto) [place] % (Auto) Eos % (Auto) Baso % (Auto) Neut # (Auto) Lymph # (Auto) [place] # (Auto) Eos # (Auto) Baso # (Auto) Abs Immat Gran (auto) Imm/Tot Granulo (auto) INR Sodium Potassium Chloride Carbon Dioxide Anion Gap BUN Creatinine Estimated Creat Clear Estimated GFR Glucose Hemoglobin A1c Calcium POC Troponin I High Sensi Triglycerides Cholesterol LDL Cholesterol, Calc HDL Cholesterol TSH Lab Acknowledgement Test Added
[2025-02-03] MEDS: SODIUM CHLORIDE 0.9 % (FLUSH) 10 ML SYRINGE 5 ML IVF ×2 (11:44→22:22)
[2025-02-03] MEDS: AMLODIPINE 5 MG TABLET PO (13:10)
--- NOTE | 2025-02-03 18:57 | PC.NURSE ---
End of shift-- Pleasant and cooperative, alert and oriented patient. VSS, though he remains hypertensive, and pt is afebrile. SPO2 maintained >90% on RA. He denied any pain. Pt speaks slowly and deliberately and states that this is his baseline. Neuros WNL. B/Ps from 160s-210s systolically today, see EMR for details. Nicardipine drip stopped at 1130 and pt's B/P maintained with PO medications since. Elevated B/P this evening of 201/106, Dr. Oseguera was notified and pt was given his bedtime Carvedilol early per her request. 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 Pt was up to the BR and chair with SBA and tolerated it fair. He did occasionally appear unsteady. and daughters, granddaughter and great-granddaughters at bedside today and appear loving and supportive.
[2025-02-03] MEDS: AMLODIPINE 5 MG TABLET 2.5 MG PO (22:22)
[2025-02-04] VITALS (12 sets, daily range): BP systolic 180–201; BP diastolic 93–110; PULSE 56–69; RESP 16–20; TEMP 36.6–37.1; O2SAT 94–98
[2025-02-04] MEDS: HYDRALAZINE HCL 20 MG/ML inj 10 MG IVP (05:23)
[2025-02-04 06:16] LABS: Hematocrit* 40.5 % (37.0-53.0); Hemoglobin* 13.7 gm/dL (13.5-17.5); Mean Corpuscular HGB Conc 34 gm/dL (32-36); Mean Corpuscular Hemoglobin 31 pg (26-34); Mean Corpuscular Volume 91 fL (80-100); Red Blood Count* 4.44 m/uL (4.30-5.90); White Blood Count* 8.87 K/uL (4.50-11.00)
[2025-02-04 06:23] LABS: Slide Review Reflex No
[2025-02-04 06:29] LABS: Chloride* 108 mmol/L (96-114)
[2025-02-04 06:30] LABS: Potassium* 3.8 mmol/L (3.6-5.1); Sodium* 140 mmol/L (135-149)
[2025-02-04 06:32] LABS: Blood Urea Nitrogen* 27 mg/dL (7-30); Creatinine* 1.4 mg/dL (0.5-1.5); Est. Creatinine Clearance* 40.68; Estimated Glomerular Filt Rate 50 ml/min
[2025-02-04 06:33] LABS: Anion Gap 6 mEq/L (7-15); Calcium* 9.2 mg/dL (8.4-10.6); Carbon Dioxide* 26 mmol/L (20-32); Glucose* 100 mg/dL (60-115)
--- NOTE | 2025-02-04 07:32 | PC.NURSE ---
End of shift: Pt?pleasant,?alert?and oriented. Pt hypertensive,?190s?systolic, notified allie, see orders. Otherwise, VSS. Tele reads NSR with first degree AV and BBB.?Up with SBA, tolerated well.?Pt in bed, appears to be resting, call light within reach.???
[2025-02-04] MEDS: AMLODIPINE 5 MG TABLET PO ×2 (09:01→21:07)
[2025-02-04] MEDS: SODIUM CHLORIDE 0.9 % (FLUSH) 10 ML SYRINGE 5 ML IVF ×2 (09:03→21:08)
[2025-02-04] MEDS: FUROSEMIDE 20 MG TABLET PO (09:51)
--- NOTE | 2025-02-04 14:03 | PM.IMPN1 ---
Assessment and Plan Assessment and plan (1) Nontraumatic thalamic hemorrhage: Problem comment: - 02/02 CT: Focal high density within central michael and L thalamus, somewhat equivocal, favor focal calcification or alternatively vascular anomalies over punctate hemorrhage - given this finding, stroke neurology recommended repeat CT and monitoring - 02/03 CT: Similar left thalamic and pontine hyperdensity, not definitively acute intracranial hemorrhage - followed by Stroke Neurology, recommend holding aspirin until 02/16/2025, outpatient neurology follow-up - therapies following (no PT or [employer]CHIT[employer] needs identified, outpatient OT f/u recommended) Status: Acute (2) Severe uncontrolled hypertension: Problem comment: - long history of medication intolerance as noted in H&P - Amlodipine 2.5mg added to regimen 01/28 but he stopped this after his TIA symptoms 01/30 (thought this was a side effect), agreeable to restarting this on admit - 02/03: Carvedilol has been increased from 6.25mg BID to 9.375mg BID (initiated 02/02 pm) and Amlodipine increased from 2.5 -> 5mg - current goal is SBP 150-180, ultimate goal normotension - 02/04/2025: Increased dose of carvedilol 12.5 mg p.o. b.i.d., increase amlodipine to 5 mg p.o. b.i.d., start furosemide 20 mg q.a.m., continue with systolic blood pressure goal of 150-180 for now prior to discharge home. Increase activity level safely. Status: Acute (3) Stage 3a chronic kidney disease (CKD): Problem comment: -creatinine 1.3, baseline 1.32-1.53 -continue to monitor, avoid nephrotoxic medications Status: Acute (4) Ascending aorta dilation: Problem comment: - 02/02: CT shows partially visualized dilatation of the ascending aorta to 4.8cm. 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 No evidence that this is unstable/leaking and there was no evidence of dissection at this time, stable per TTE in December - routine Cardiology f/u Status: Acute (5) Status post bilateral inguinal hernia repair: Problem comment: Dr. Paniagua 07/09/2023 no complications Status: Acute Plan 1. Reviewed impression, plans, recommendations with patient and Ayala 2. Answered their questions 3. They are agreeable with above stated plans and recommendations Total Time Spent Total Time Spent: 50 minutes Subjective Date Seen: 02/04/25 Interval history: 02/03/2025 progress note: ?Interval history: ?Koffi was admitted to the hospital yesterday after presenting to the ER for concerns of a TIA. On Saturday, 01/30 he had a brief period of numbness on his right cheek and lip with trouble speaking and difficulty swallowing. His symptoms resolved within a 1/2 hour. He had recently started Amlodipine, stopped this on Saturday after the above incident (long history of difficult to control HTN with multiple medication intolerances). ?In the ER: Presenting blood pressure 206/140, Head CT revealed a focal area of high density in central michael and L thalamus (equivocal, but possible punctate hemorrhage). Stroke Neurology consult and recommended a nicardipine drip and repeat head CT today. Head CT this morning stable (no definitive bleed). He also had a CTA of the chest this morning, given known aneurysmal dilatation of his ascending aorta (followed by Cardiology). This measures 4.9cm (was 4.8cm on recent TTE) without evidence of instability, leakage, or dissection. ?Tolerated nicardipine drip overnight with improvement in systolic blood pressure to 140-160s. Home carvedilol dosing increased from 6.25mg BID --> 9.375mg BID and amlodipine 2.5mg mid day was added back to regimen. ?This morning patient has no headache. He has no chest pain. He has no focal neurologic deficits or concerns for hospitalist team. Family bedside today.? 02/04/2025: Systolic blood pressures between 190 and 210 with diastolic values between 90 and 105. Denies lightheadedness, nausea, vomiting, new focal motor deficits, visual loss, dysphagia, or other neurologic deficits. Today he is willing to accept increased doses of his antihypertensive medications. I reviewed these with him and his . Answered their questions. He understands the risks and the desired outcomes that we are striving to achieve. Exam Narrative: Exam Narrative: Examined in his hospital room. Appears anxious otherwise no acute distress. Cooperative and friendly. No apparent focal motor neurologic deficits. Ambulates independently with walker. Transfers independently with walker. Lungs clear to auscultation. Heart tones with regular rhythm. Abdomen benign. Extremities without edema. Const: Vital Signs, click to edit/add: Vital Signs - 24 hr 02/03/25 15:00 02/03/25 15:00 02/03/25 15:00 Temperature 36.8 C Pulse Rate 71 Pulse Rate [Right Pulse Oximeter] 69 68 Respiratory Rate 16 16 Blood Pressure [Le ft Arm] Blood Pressure [Ri ght Arm] 198/101 H Pulse Oximetry 97 Oxygen Delivery Me thod Room Air 02/03/25 15:38 02/03/25 17:40 02/03/25 17:46 Temperature 36.9 C Pulse Rate Pulse Rate [Right Pulse Oximeter] 68 65 65 Respiratory Rate 16 18 Blood Pressure [Le ft Arm] Blood Pressure [Ri ght Arm] 170/100 H 201/106 H Pulse Oximetry 97 97 Oxygen Delivery Ut thod Room Air Room Air 02/03/25 19:00 02/03/25 21:00 02/03/25 21:00 Temperature 36.9 C Pulse Rate Pulse Rate [Right Pulse Oximeter] 66 66 Respiratory Rate 18 Blood Pressure [Le ft Arm] Blood Pressure [Ri ght Arm] 205/112 H 189/103 H Pulse Oximetry 96 Oxygen Delivery Me thod Room Air 02/03/25 22:25 02/03/25 23:00 02/03/25 23:00 Temperature 36.6 C Pulse Rate 61 Pulse Rate [Right Pulse Oximeter] 62 62 Respiratory Rate 16 16 Blood Pressure [Le ft Arm] Blood Pressure [Ri ght Arm] 182/99 H Pulse Oximetry 94 Oxygen Delivery Me thod Room Air 02/04/25 01:00 02/04/25 03:38 02/04/25 06:20 Temperature 36.6 C Pulse Rate Pulse Rate [Right Pulse Oximeter] 62 56 L 56 L Respiratory Rate 16 Blood Pressure [Le ft Arm] Blood Pressure [Ri ght Arm] 199/97 H Pulse Oximetry 97 Oxygen Delivery Me thod Room Air 02/04/25 07:00 02/04/25 07:00 02/04/25 07:00 Temperature 36.7 C Pulse Rate 63 Pulse Rate [Right Pulse Oximeter] 63 63 Respiratory Rate 18 Blood Pressure [Le ft Arm] 195/97 H Blood Pressure [Ri ght Arm] Pulse Oximetry 97 Oxygen Delivery Me thod Room Air 02/04/25 10:00 02/04/25 10:34 02/04/25 13:21 Temperature 36.6 C Pulse Rate Pulse Rate [Right Pulse Oximeter] 63 62 62 Respiratory Rate 20 Blood Pressure [Le ft Arm] 192/104 H Blood Pressure [Ri ght Arm] Pulse Oximetry 98 Oxygen Delivery Me thod Room Air Labs Labs: Laboratory Results - last 24 hr 02/04/25 05:49 WBC 8.87 RBC 4.44 Hgb 13.7 Hct 40.5 MCV 91 MCH 31 MCHC 34 Plt Count 245 Sodium 140 Potassium 3.8 Chloride 108 Carbon Dioxide 26 Anion Gap 6 L BUN 27 Creatinine 1.4 Estimated Creat Clear 40.68 Estimated GFR 50 Glucose 100 Calcium 9.2
--- NOTE | 2025-02-04 18:55 | PC.NURSE ---
End of shift Note CCU3 ([id number]) Patient was very pleasant and cooperative. BP systolic expected range 190-180. Afebrile. BP rises with exertion. Patient has been walking SBA with walker accompanied by family (PT authorized) on hallways. Activity tolerated well. A&Ox4. Uses call light appropriately. Call light within reach.
[2025-02-05 02:47] VITALS: BP 194/107; PULSE 61; RESP 16; TEMP 37; O2SAT 95
[2025-02-05 05:45] VITALS: PULSE 68
[2025-02-05 06:26] LABS: Hematocrit* 38.4 % (37.0-53.0); Hemoglobin* 13.5 gm/dL (13.5-17.5); Mean Corpuscular HGB Conc 35 gm/dL (32-36); Mean Corpuscular Hemoglobin 31 pg (26-34); Mean Corpuscular Volume 88 fL (80-100); Red Blood Count* 4.36 m/uL (4.30-5.90); White Blood Count* 9.53 K/uL (4.50-11.00)
[2025-02-05 06:34] LABS: Slide Review Reflex No
[2025-02-05 06:40] LABS: Chloride* 107 mmol/L (96-114)
[2025-02-05 06:41] LABS: Potassium* 3.7 mmol/L (3.6-5.1); Sodium* 140 mmol/L (135-149)
[2025-02-05 06:44] LABS: Anion Gap 7 mEq/L (7-15); Blood Urea Nitrogen* 33 mg/dL (7-30); Calcium* 9.3 mg/dL (8.4-10.6); Carbon Dioxide* 26 mmol/L (20-32); Creatinine* 1.4 mg/dL (0.5-1.5); Est. Creatinine Clearance* 40.68; Estimated Glomerular Filt Rate 50 ml/min; Glucose* 106 mg/dL (60-115)
--- NOTE | 2025-02-05 06:59 | PC.NURSE ---
Shift note ([id number]): Patient pleasant, alert and oriented. Neuro checks within normal limits.? Standy by assist for ambulation to bathroom and in hallway. Denied pain.?
[2025-02-05 07:00] VITALS: BP 208/117; PULSE 64; PULSE 65; RESP 18; TEMP 36.7; O2SAT 92
[2025-02-05] MEDS: FUROSEMIDE 20 MG TABLET PO (08:03)
[2025-02-05] MEDS: AMLODIPINE 5 MG TABLET PO (08:03)
--- NOTE | 2025-02-05 09:47 | PC.NURSE ---
in chart for discharge med list after call from pharmacy who had questions
[2025-02-05 10:00] VITALS: PULSE 65
[2025-02-05] MEDS: SODIUM CHLORIDE 0.9 % (FLUSH) 10 ML SYRINGE 5 ML IVF (10:01)
--- NOTE | 2025-02-05 11:19 | PC.NURSE ---
Discharge Note CCU3 Patient was very pleasant and cooperative throughout shift. VSS. Afebrile. A&Ox4. Moves well independently. Education on pertinent topics provided to patient and spouse. Patient discharged at 11:06 am accompanied by his and granddaughter.
--- NOTE | 2025-02-06 14:53 | P.DS_ITS ---
DS: Providers Provider Date Seen: 02/05/25 Date of admission: 02/02/25 17:58 Primary care physician: Marya Trejo MD Admitting Clinician: Sammie Oseguera MD Consults: 02/02/25 21:00 Consult to Occupational Therapy [CONS] Routine Comment: Reason(s) for OT Consult:: Evaluate and Treat Any Restrictions?:: No Restrictions Consult to Physical Therapy [CONS] Routine Comment: Reason(s) for PT Consult:: Evaluate and Treat Any Restrictions?:: No Restrictions Consult to Speech Therapy [CONS] Routine Comment: Reason(s) for Speech Consult:: Speech/Swallowing Eval Comment: Right side facial/chin numbness, drooling - resolved Attending Physician on discharge: Baron Piper MD Date of Discharge: 02/05/25 DS: Diagnosis Discharge Diagnosis (1) Nontraumatic thalamic hemorrhage: Status: Acute Problem details: - 02/02 CT: Focal high density within central michael and L thalamus, somewhat equivocal, favor focal calcification or alternatively vascular anomalies over punctate hemorrhage - given this finding, stroke neurology recommended repeat CT and monitoring - 02/03 CT: Similar left thalamic and pontine hyperdensity, not definitively acute intracranial hemorrhage - followed by Stroke Neurology, recommend holding aspirin until 02/16/2025, outpatient neurology follow-up - therapies following (no PT or CATHEAD OPERATOR needs identified, outpatient OT f/u recommended) (2) Severe uncontrolled hypertension: Status: Acute Problem details: - long history of medication intolerance as noted in H&P - Amlodipine 2.5mg added to regimen 01/28 but he stopped this after his TIA symptoms 01/30 (thought this was a side effect), agreeable to restarting this on admit - 02/03: Carvedilol has been increased from 6.25mg BID to 9.375mg BID (initiated 02/02 pm) and Amlodipine increased from 2.5 -> 5mg - current goal is SBP 150-180, ultimate goal normotension - 02/04/2025: Increased dose of carvedilol 12.5 mg p.o. b.i.d., increase amlodipine to 5 mg p.o. b.i.d., start furosemide 20 mg q.a.m., continue with systolic blood pressure goal of 150-180 for now prior to discharge home. Increase activity level safely. (3) Anxiety: Status: Acute (4) Ascending aorta dilation: Status: Acute Problem details: - 02/02: CT shows partially visualized dilatation of the ascending aorta to 4.8cm. 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 No evidence that this is unstable/leaking and there was no evidence of dissection at this time, stable per TTE in December - routine Cardiology f/u (5) Stage 3a chronic kidney disease (CKD): Status: Acute Problem details: -creatinine 1.3, baseline 1.32-1.53 -continue to monitor, avoid nephrotoxic medications (6) Status post bilateral inguinal hernia repair: Status: Acute Problem details: Dr. Paniagua 07/09/2023 no complications DS: Summary Hospital Course Hospital Course: 02/03/2025 progress note: ?Interval history: ?Koffi was admitted to the hospital yesterday after presenting to the ER for concerns of a TIA. On Saturday, 01/30 he had a brief period of numbness on his right cheek and lip with trouble speaking and difficulty swallowing. His symptoms resolved within a 1/2 hour. He had recently started Amlodipine, stopped this on Saturday after the above incident (long history of difficult to control HTN with multiple medication intolerances). ?In the ER: Presenting blood pressure 206/140, Head CT revealed a focal area of high density in central michael and L thalamus (equivocal, but possible punctate hemorrhage). Stroke Neurology consult and recommended a nicardipine drip and repeat head CT today. Head CT this morning stable (no definitive bleed). He also had a CTA of the chest this morning, given known aneurysmal dilatation of his ascending aorta (followed by Cardiology). This measures 4.9cm (was 4.8cm on recent TTE) without evidence of instability, leakage, or dissection. ?Tolerated nicardipine drip overnight with improvement in systolic blood pressure to 140-160s. Home carvedilol dosing increased from 6.25mg BID --> 9.375mg BID and amlodipine 2.5mg mid day was added back to regimen. ?This morning patient has no headache. He has no chest pain. He has no focal neurologic deficits or concerns for hospitalist team. Family bedside today.? His condition improved gradually throughout the remainder of the hospital stay. Of subjective and objective acute abnormalities resolved. Blood pressures continue to be difficult to manage. At discharge his medication regimen was as follows: Carvedilol 12.5 mg twice daily, amlodipine 5 mg twice daily, and furosemide 20 mg every morning. At discharge high as I spoke with him I asked him to hold his aspirin and that he could restarted again on 02/17/2025. I called him at his home and spoke with him on 02/06/2025, and he indicated he was satisfied with the outcome of his recent hospitalization, his blood pressures at home are running 160/90, denies neurologic concerns or changes. He had no further questions or concerns. I reminded him to not restart the aspirin at 81 mg daily until , 02/17/2025. He assured me he would not start the aspirin until , 02/17/2025. He will keep all follow-up appointments as planned and return sooner if needed. Status at Discharge Functional status at discharge: uses cane/walker Overall status at discharge: patient is back to baseline Time Spent with Patient Time attestation: Total time spent providing and/or coordinating discharge services: Time spent: Greater than 30 minutes Exam Narrative: Exam Narrative: Examined in his hospital room. Appears anxious otherwise no acute distress. Cooperative and friendly. No apparent focal motor neurologic deficits. Ambulates independently with walker. Transfers independently with walker. Lungs clear to auscultation. Heart tones with regular rhythm. Abdomen benign. Extremities without edema. DS: Data Imaging CT scan - head: Attestation: I have reviewed the pertinent imaging results. Radiologist's impression: IMPRESSION: 1. 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 Considering the extensive white matter disease, MRI may have improved sensitivity for the detection of lacunar infarcts. 2. Focal high density within the central michael and left thalamus. These are somewhat equivocal but would favor focal calcification or alternatively vascular anomalies over punctate hemorrhage. Repeat CT scan of head: Radiologist's impression: IMPRESSION: Similar left thalamic and pontine hyperdensity, not definitively acute intracranial hemorrhage CT angiogram of chest: Radiologist's impression: IMPRESSION: 1. Top-normal size heart. No mediastinal or hilar adenopathy or mass. 2. Fusiform aneurysmal dilation of ascending aorta maximally measuring 4.9 centimeters. There is no evidence that this is unstable/leaking and there was no evidence of dissection at this time 3. No finding of pulmonary embolus. 4. Linear opacities probably due to atelectasis. No consolidation, infiltrate or mass. No pleural effusion or pneumothorax. Discharge Plan Discharge Disposition: Home, Self-Care Date of Admission: 02/02/25 17:58 Attending Provider on Discharge: Baron Piper Primary Care Provider: Marya Trejo Condition: Stable Anticipated Discharge Date/Time: 02/05/25 10:30 Discharge Medications: New carvedilol 6.25 mg Tablet 12.5 mg PO BID 30 Days Qty: 120 2RF amlodipine 5 mg Tablet 5 mg PO BID 30 Days Qty: 60 2RF furosemide 20 mg Tablet 20 mg PO DAILY@0800 30 Days Qty: 30 2RF escitalopram oxalate 5 mg tablet 5 mg PO DAILY Qty: 1 2RF Rx Instructions: You and your primary care physician will consider increasing the dose after 4-6 weeks Continued aspirin 81 mg tablet,delayed release (DR/EC) 81 mg PO DAILY cholecalciferol (vitamin D3) 50 mcg (2,000 unit) capsule 50 mcg PO DAILY coenzyme Q10 [Co Q-10] 100 mg capsule 100 mg PO DAILY magnesium oxide 400 mg magnesium tablet 400 mg PO DAILY Discontinued carvedilol 6.25 mg tablet 6.25 mg PO BID amlodipine 2.5 mg tablet 2.5 mg PO DAILY Discharge Orders: Discharge Order (Routine); Ordered 02/05/25 Ordered By: Baron Piper Patient Education: Furosemide (By mouth), Amlodipine (By mouth), Carvedilol (By mouth), Escitalopram (By mouth), Seasoning Without Salt (DC), Generalized Anxiety Disorder (ED), Cognitive Behavioral Therapy (DC), Low-Sodium Diet (DC), Hypertensive Crisis (DC), Hypertension in the Older Adult (DC), Mild Cognitive Impairment: New Diagnosis (DC) Additional Instructions: 1. Follow-up with Dr. Trejo in 3-7 days 2. Outpatient Occupational Therapy for additional assessments of cognitive function 3. Consider cognitive behavioral therapy for anxiety treatment, in addition to low dose escitalopram Activity Level: Activity as Tolerated Activity Detail: Use walker as needed for stability Discharge Diet: 2 gm Sodium Follow Up Appointments: Marya Trejo MD [Primary Care Provider, Family Practice] - 02/10/25 8:40 am Forms: [employer] Info Instructions
== END 2025-02-05 11:06 | disposition home or self-care (01) | DRG 66 ==
LOC: ED 16:43 → MEDSURG 02-03 09:00
PROVIDERS: Family Medicine; Physician Assistant; Admitting Provider Emergency Medicine; Emergency Provider Emergency Medicine; PCP Family Medicine; Visit Provider Emergency Medicine
DX: I61.9 Nontraumatic intracerebral hemorrhage, unspecified (principal); I12.9 Hypertensive chronic kidney disease with stage 1 through stage 4 chronic kidney disease, or unspecified chronic kidney disease; N18.31 Chronic kidney disease, stage 3a; E78.5 Hyperlipidemia, unspecified; I77.810 Thoracic aortic ectasia; Z79.52 Long term (current) use of systemic steroids; Z66 Do not resuscitate; Z79.82 Long term (current) use of aspirin; F41.9 Anxiety disorder, unspecified; Z79.899 Other long term (current) drug therapy
CPT/HCPCS: 36415; 70450; 70496; 70498; 71275; 80048; 80061; 82565; 83036; 84443; 84484; 85025; 85027; 85610; 92523; 93005; 97112; 97116; 97161; 97165; 99285; A9270; J0360; J2404; Q9967